=== PATIENT | female | born 1975 | race Caucasian/White ===

== ENCOUNTER 2018-04-18 17:11 | Inpatient (IN) | payer BC, OTHER ==
[~2018-04-18] VITALS: Ht 165.1 cm; Wt 91.8 kg
[~2018-04-18 17:11] MED LIST: ANT25 PO; IMT100 PO; LEVO100T7 PO; LXP/20 PO; MTR800 PO; NITR-5 PO; ONDA4TAB54 PO; PANT1TAB3 PO; PHN25X PO; RIZA1TAB11 PO; SNQ25 PO; SUMA1INJ5 IM; TOPI100T20 PO; VLM5 PO
[2018-04-18] MEDS ORDERED: MoRPHine SULFATE 10 MG/ML CARP/VIAL IV STA (18:04)
[2018-04-18] MEDS ORDERED: ONDANSETRON INJ 2 MG/ML 2 ML VIAL IV STA (18:04)
[2018-04-18] MEDS ORDERED: SODIUM CHLORIDE 0.9% 1000ML 2,000 ML IV STA (18:04)
[2018-04-18] MEDS ORDERED: OPTIRAY 320 IV PRN (18:15)
[2018-04-18] MEDS ORDERED: BUPR-83 PO (18:24)
[2018-04-18] MEDS ORDERED: VALA500T60 PO (18:24)
[2018-04-18] MEDS ORDERED: CHOL2000 PO (18:24)
[2018-04-18] MEDS ORDERED: LEVO50TA6 PO (18:24)
[2018-04-18] MEDS ORDERED: FAMO20TA11 PO (18:24)
[2018-04-18] MEDS ORDERED: RIZA10TA18 PO (18:24)
[2018-04-18] MEDS ORDERED: MTR800 PO (18:24)
[2018-04-18] MEDS ORDERED: B-COTAB18 PO (18:24)
[2018-04-18] MEDS ORDERED: SUMA6KIT SC (18:24)
[2018-04-18] MEDS ORDERED: HYDR50CA PO (18:24)
[2018-04-18 18:55] LABS: BASO % 0.3 %; BASO ABS # 0.02 K/uL (0-0.2); EOS % 0.9 %; EOS ABS # 0.06 K/uL (0-0.5); HEMATOCRIT 41.5 % (37-47); HEMOGLOBIN 13.8 g/dL (12.0-16.0); IG# 0.01 K/uL (0.00-0.02); LYMPH % 25.6 %; LYMPH ABS # 1.74 K/uL (1.2-3.4); MEAN CELL VOLUME 87.6 fL (80-100); MEAN CORPUSCULAR HEMOGLOBIN 29.1 pg (25-34); MEAN CORPUSCULAR HGB CONC 33.3 g/dl (32-36); MEAN PLATELET VOLUME 10.5 fL (7.4-10.4); MONO % 8.4 %; MONO ABS # 0.57 K/uL (0.11-0.59); NEUT % 64.7 %; NEUT ABS # 4.41 K/uL (1.4-6.5); PLATELET COUNT 306 K/uL (130-400); RED CELL DISTRIBUTION WIDTH CV 13.9 % (11.5-14.5); RED CELL DISTRIBUTION WIDTH SD 44.8 fL (36.4-46.3); WHITE BLOOD COUNT 6.81 K/uL (4.8-10.8)
[2018-04-18 19:15] LABS: ALBUMIN 4.3 gm/dl (3.4-5.0); CALCIUM 9.3 mg/dl (8.5-10.1); CREATININE 0.99 mg/dl (0.60-1.20); POTASSIUM 3.9 mmol/L (3.5-5.1); TOTAL PROTEIN 8.4 gm/dl (6.4-8.2)
--- NOTE | 2018-04-18 20:11 | DIAGNOSTIC IMAGING REPORT ---
CT ABD/PELVIS IV CONTRAST ONLY CLINICAL HISTORY: Diffuse abdominal and back pain, slightly worse than the right side. COMPARISON STUDY: February 2015 TECHNIQUE: Following the IV administration of 115 mL of Optiray-320, CT scan of the abdomen and pelvis was performed from the lung bases to the proximal femurs. Images are reviewed in the axial, sagittal, and coronal planes. IV contrast was administered without complication. A dose lowering technique was utilized adhering to the principles of ALARA. CT DOSE: 787.75 mGy.cm FINDINGS: Lower chest: The heart is normal in size and configuration, without pericardial effusion. The lung bases and pleural spaces are clear. Liver: The contrast-enhanced liver is normal in size, contour, and attenuation. There is no intrahepatic biliary ductal dilatation. The hepatic veins and portal veins are patent. Gallbladder: Unremarkable. Spleen: Normal in size and attenuation. Pancreas: Unremarkable. Adrenal glands: Unremarkable. Kidneys: There is symmetric renal cortical enhancement. The kidneys are normal in size without hydronephrosis. Each kidney demonstrates an extrarenal pelvis. Bowel: There is mild nonspecific dilatation of a proximal to mid jejunal loop measuring 34 mm. The etiology of this finding is unclear. No discrete mass is visualized. Evaluation is limited given the absence of orally administered contrast. There is colonic diverticulosis. There are no acute peridiverticular inflammatory changes. The appendix is not visualized with certainty. There are no findings to indicate acute appendicitis. Peritoneum: There is no intraperitoneal free air or abdominal ascites. Vasculature: The abdominal aorta is normal in course and caliber. Adenopathy: None. Pelvic viscera: The uterus is surgically absent. Skeletal structures: No destructive osseous lesions are seen. IMPRESSION: 1. Mild nonspecific dilatation of a proximal to mid jejunal loop measuring 34 mm. The etiology of this finding is unclear. An early small bowel obstruction or focal enteritis cannot be excluded. If symptoms persist, a repeat study in 12 hours with both oral and intravenous contrast might be considered. 2. No evidence of free intraperitoneal air 3. Diverticulosis. No evidence of acute diverticulitis. 4. No evidence of acute appendicitis. Electronically signed by: Murali Temple M.D. 04/18/2018 8:10 PM Dictated Date/Time: 04/18/2018 7:58 PM
[2018-04-18] MEDS ORDERED: MoRPHine SULFATE 4 MG/ML 1 ML CARP\\VIAL IV STA (20:17)
--- NOTE | 2018-04-18 20:42 | DIAGNOSTIC IMAGING REPORT ---
CT LUMBAR SPINE WITHOUT CT DOSE: CLINICAL HISTORY: Severe low back pain TECHNIQUE: Helical images were acquired in transverse plane. Reformatted sagittal and coronal images were reviewed. A dose lowering technique was utilized adhering to the principles of ALARA. CONTRAST: No contrast was administered COMPARISON STUDY: None. FINDINGS: L1-2 level: There is no evidence of significant disc bulge or focal herniation. There is no evidence of spinal or foraminal stenosis. L2-3 level: There is no evidence of significant disc bulge or focal herniation. There is no evidence of spinal or foraminal stenosis. L3-4 level: There is no evidence of significant disc bulge or focal herniation. There is no evidence of spinal or foraminal stenosis. L4-5 level: There is no evidence of significant disc bulge or focal herniation. There is no evidence of spinal or foraminal stenosis. L5-S1 level: There is a suspected left paracentral disc protrusion. Visualization is limited due to the patient's large body habitus. No fractures subluxations or destructive lesions are visualized. If further follow-up of the spine is indicated, an MRI would be considered the test of choice. IMPRESSION: 1. No fractures, subluxations, or destructive lesions are visualized 2. Suspected left paracentral disc protrusion at the L5-S1 level. Visualization is unfortunately limited due to the patient's large body habitus. Electronically signed by: Murali Temple M.D. 04/18/2018 8:40 PM Dictated Date/Time: 04/18/2018 8:37 PM
[2018-04-18] MEDS ORDERED: POLYETHYLENE (MIRALAX) 17 GM PACK PO PRN (21:45)
[2018-04-18] MEDS ORDERED: MAGNESIUM HYDROXIDE SUSP 30 ML UDC PO PRN (21:45)
[2018-04-18] MEDS ORDERED: ALUMINUM/MAGNESIUM/SIMETH (MAALOX MAX) 30 ML UDC PO PRN (21:45)
[2018-04-18] MEDS ORDERED: PANTOprazole INJ 40 MG in SYRINGE 0 ML IV STA (22:19)
--- NOTE | 2018-04-18 22:27 | History and Physical ---
History & Physical Date & Time of Service: Apr 18, 2018 at 22:04 Chief Complaint: Kidney Pain Primary Care Physician: Janet Horan History of Present Illness Source: patient, family Ms. Peres is a 42y/oF with 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 kidney stones, frequent UTIs, hypothyroidism, migraine headaches, ASD, gluten allergy, depression presented with 4 days of progressively worsening R flank pain radiating to abdomen. Associated with nausea, chills, sweats, decreased appetite, and increased BMs (usually goes 2x/month but was going more for the past 4 days and developed diarrhea today), and dysuria/increased urinary frequency. Pain is worse with when she moves/changes positions, intermittent (comes in waves) and cramping in nature. Also noted that blood on wiping. Currently 04/02 despite 10mg of morphine IV. Initially she thought she might have the flu. Denies any fever, sob, cp. ED hx: received morphine 4mg and 6mg IV, NS 1L, and Zofran 4mg x 1 Past Medical/Surgical History Medical Problems: (1) Acute abdominal pain (2) ASHD (arteriosclerotic heart disease) (3) Back pain (4) Danielle's esophagus (5) Cough (6) Cough (7) Gastroenteritis (8) Headache (9) Headache (10) heart disease (11) Hydrosalpinx (12) IBS (irritable bowel syndrome) (13) Intractable nausea and vomiting (14) Kidney disease (15) Menorrhagia (16) Migraine (17) Ovarian cyst (18) Post-op pain (19) Postoperative hematoma (20) Syncopal episodes (21) Vertigo (22) Vomiting Surgical Problems: (1) H/O: hysterectomy (2) History of tubal ligation Family History Cancer Diabetes mellitus Gallbladder disease Heart disease Kidney disease Kidney stones Lung disease Social History Smoking Status: Never Smoker Smokeless Tobacco Use: No Alcohol Use: none Drug Use: none Marital Status: single Occupational Status: employed Immunizations History of Influenza Vaccine: Unknown History of Tetanus Vaccine?: Unknown History of Pneumococcal: Unknown History of Hepatitis B Vaccine: Unknown Allergies Coded Allergies: Oxycodone (Verified Adverse Reaction, Mild, GI Distress (Percocet), ) States has taken before but can only take 1- gets very nauseated Home Medications Scheduled B-Complex Vitamins (Vitamin B Complex), 1 TAB PO DAILYBB Bupropion HCl (Bupropion HCl Sr), 100 MG PO DAILY Cholecalciferol (Vitamin D3), 1 CAP PO DAILY Famotidine (Pepcid), 20 MG PO DAILY Hydroxyzine Pamoate (Vistaril), 1 CAP PO HS Ibuprofen (Ibuprofen), 1 TAB PO TID Levothyroxine Sodium (Levothyroxine Sodium), 1 TAB PO DAILY Sumatriptan Succinate (Imitrex Statdose), 6 MG SC DIRECTED Topiramate (Topamax), 300 MG PO HS Valacyclovir (Valtrex), 1 TAB PO Q8 Scheduled PRN Ondansetron (Ondansetron HCl), 1 TAB PO for Nausea Rizatriptan Benzoate (Rizatriptan Benzoate), 10 MG PO UD PRN for Migraine Review of Systems Constitutional: + chills, + sweats, No fever Respiratory: No shortness of breath Cardiovascular: No chest pain Abdomen: + pain, + nausea, + diarrhea, No vomiting, No constipation Genitourinary - Female: + dysuria, + urinary frequency Neurologic: + problem reported (headache) Physical Exam Vital Signs Date Time Temp Pulse Resp B/P (MAP) Pulse Ox O2 Delivery O2 Flow Rate FiO2 04/18/18 20:07 78 18 129/95 100 Room Air 04/18/18 18:38 83 18 149/104 96 Room Air 04/18/18 17:37 36.7 88 22 140/95 100 Room Air General Appearance: + moderate distress (when abdomen examined otherwise in mild distress) Head: normocephalic, atraumatic Eyes: normal inspection Respiratory/Chest: lungs clear, normal breath sounds, no respiratory distress Cardiovascular: regular rate, rhythm, no murmur Abdomen/GI: normal bowel sounds, soft, + pertinent finding (tender to mild palpation in all quadrants; no rebound TTP; + R sided CVA tenderness) Back: + right CVA tenderness Extremities/Musculoskelatal: no calf tenderness, no pedal edema Neurologic/Psych: alert, oriented x 3 Skin: normal color, warm/dry Diagnostics Laboratory Results Results Past 24 Hours Test 04/18/18 18:22 04/18/18 18:35 Range/Units Urine Color DK YELLOW Urine Appearance CLOUDY CLEAR Urine pH 5.0 4.5-7.5 Urine Specific [place] 1.029 1.000-1.030 Urine Protein TRACE NEG Urine Glucose (UA) NEG NEG Urine Ketones TRACE NEG Urine Occult Blood NEG NEG Urine Nitrite NEG NEG Urine Bilirubin NEG NEG Urine Urobilinogen NEG NEG Urine Leukocyte Esterase TRACE NEG Urine WBC (Auto) 5-10 0-5 /hpf Urine RBC (Auto) 0-4 0-4 /hpf Urine Hyaline Casts (Auto) 1-5 0-5 /lpf Urine Epithelial Cells (Auto) >30 0-5 /lpf Urine Bacteria (Auto) NEG NEG Urine Crystals CALCIUM OXALATE NONE PRSENT Urine Test NEG NEG White Blood Count 6.81 4.8-10.8 K/uL Red Blood Count 4.74 4.2-5.4 M/uL Hemoglobin 13.8 12.0-16.0 g/dL Hematocrit 41.5 37-47 % Mean Corpuscular Volume 87.6 80-100 fL Mean Corpuscular Hemoglobin 29.1 25-34 pg Mean Corpuscular Hemoglobin Concent 33.3 32-36 g/dl Platelet Count 306 130-400 K/uL Mean Platelet Volume 10.5 7.4-10.4 fL Neutrophils (%) (Auto) 64.7 % Lymphocytes (%) (Auto) 25.6 % Monocytes (%) (Auto) 8.4 % Eosinophils (%) (Auto) 0.9 % Basophils (%) (Auto) 0.3 % Neutrophils # (Auto) 4.41 1.4-6.5 K/uL Lymphocytes # (Auto) 1.74 1.2-3.4 K/uL Monocytes # (Auto) 0.57 0.11-0.59 K/uL Eosinophils # (Auto) 0.06 0-0.5 K/uL Basophils # (Auto) 0.02 0-0.2 K/uL RDW Standard Deviation 44.8 36.4-46.3 fL RDW Coefficient of Variation 13.9 11.5-14.5 % Immature Granulocyte % (Auto) 0.1 % Immature Granulocyte # (Auto) 0.01 0.00-0.02 K/uL Sodium Level 141 136-145 mmol/L Potassium Level 3.9 3.5-5.1 mmol/L Chloride Level 110 98-107 mmol/L Carbon Dioxide Level 25 21-32 mmol/L Anion Gap 6.0 3-11 mmol/L Blood Urea Nitrogen 18 7-18 mg/dl Creatinine 0.99 0.60-1.20 mg/dl Est Creatinine Clear Calc Drug Dose 81.2 ml/min Estimated GFR () 80.3 Estimated GFR (Non- 69.3 BUN/Creatinine Ratio 17.9 10-20 Random Glucose 98 70-99 mg/dl Calcium Level 9.3 8.5-10.1 mg/dl Total Bilirubin 0.5 0.2-1 mg/dl Direct Bilirubin 0.1 0-0.2 mg/dl Aspartate Amino Transf (AST/SGOT) 27 15-37 U/L Alanine Aminotransferase (ALT/SGPT) 52 12-78 U/L Alkaline Phosphatase 86 45-117 U/L Total Protein 8.4 6.4-8.2 gm/dl Albumin 4.3 3.4-5.0 gm/dl Lipase 115 73-393 U/L Diagnostic Radiology CT LUMBAR SPINE WITHOUT CT DOSE: CLINICAL HISTORY: Severe low back pain TECHNIQUE: Helical images were acquired in transverse plane. Reformatted sagittal and coronal images were reviewed. A dose lowering technique was utilized adhering to the principles of ALARA. CONTRAST: No contrast was administered COMPARISON STUDY: None. FINDINGS: L1-2 level: There is no evidence of significant disc bulge or focal herniation. There is no evidence of spinal or foraminal stenosis. L2-3 level: There is no evidence of significant disc bulge or focal herniation. There is no evidence of spinal or foraminal stenosis. L3-4 level: There is no evidence of significant disc bulge or focal herniation. There is no evidence of spinal or foraminal stenosis. L4-5 level: There is no evidence of significant disc bulge or focal herniation. There is no evidence of spinal or foraminal stenosis. L5-S1 level: There is a suspected left paracentral disc protrusion. Visualization is limited due to the patient's large body habitus. No fractures subluxations or destructive lesions are visualized. If further follow-up of the spine is indicated, an MRI would be considered the test of choice. IMPRESSION: 1. No fractures, subluxations, or destructive lesions are visualized 2. Suspected left paracentral disc protrusion at the L5-S1 level. Visualization is unfortunately limited due to the patient's large body habitus. CT ABD/PELVIS IV CONTRAST ONLY CLINICAL HISTORY: Diffuse abdominal and back pain, slightly worse than the right side. COMPARISON STUDY: February 2015 TECHNIQUE: Following the IV administration of 115 mL of Optiray-320, CT scan of the abdomen and pelvis was performed from the lung bases to the proximal femurs. Images are reviewed in the axial, sagittal, and coronal planes. IV contrast was administered without complication. A dose lowering technique was utilized adhering to the principles of ALARA. CT DOSE: 787.75 mGy.cm FINDINGS: Lower chest: The heart is normal in size and configuration, without pericardial effusion. The lung bases and pleural spaces are clear. Liver: The contrast-enhanced liver is normal in size, contour, and attenuation. There is no intrahepatic biliary ductal dilatation. The hepatic veins and portal veins are patent. Gallbladder: Unremarkable. Spleen: Normal in size and attenuation. Pancreas: Unremarkable. Adrenal glands: Unremarkable. Kidneys: There is symmetric renal cortical enhancement. The kidneys are normal in size without hydronephrosis. Each kidney demonstrates an extrarenal pelvis. Bowel: There is mild nonspecific dilatation of a proximal to mid jejunal loop measuring 34 mm. The etiology of this finding is unclear. No discrete mass is visualized. Evaluation is limited given the absence of orally administered contrast. There is colonic diverticulosis. There are no acute peridiverticular inflammatory changes. The appendix is not visualized with certainty. There are no findings to indicate acute appendicitis. Peritoneum: There is no intraperitoneal free air or abdominal ascites. Vasculature: The abdominal aorta is normal in course and caliber. Adenopathy: None. Pelvic viscera: The uterus is surgically absent. Skeletal structures: No destructive osseous lesions are seen. IMPRESSION: 1. Mild nonspecific dilatation of a proximal to mid jejunal loop measuring 34 mm. The etiology of this finding is unclear. An early small bowel obstruction or focal enteritis cannot be excluded. If symptoms persist, a repeat study in 12 hours with both oral and intravenous contrast might be considered. 2. No evidence of free intraperitoneal air 3. Diverticulosis. No evidence of acute diverticulitis. 4. No evidence of acute appendicitis. Impression Assessment and Plan Ms. Peres is a 42y/oF with 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 kidney stones, frequent UTIs, hypothyroidism, migraine headaches, ASD, gluten allergy, depression presented with 4 days of progressively worsening R flank pain radiating to abdomen concerning for urethral pathology such as urethral stenosis given hx of urosepsis with urethral surgery (ureter was detached and reattached) vs. nephrolithiasis (CT abdomen did not reveal any stones however it was with contrast) vs. mild pyelonephritis (given dirty UA) vs. early small bowel obstruction. Will admit for further work up and management. Abdominal and flank pain concerning for urethral pathology given previous history of urethral surgery - Afebrile with normal WBC - CMP wnl - UA with trace leuk esterase 5-10 WBC and > 30 epi and calcium oxalate crystals - test neg - CT abdomen with contrast: mild non-specific dilation of proximal to mid jejunal loop 34mm concerning for possible early small bowel obstruction or focal enteritis; no free air; diverticulosis without diverticulitis; no appendicitis - Lumbar spine CT: no fractures, suspected L paracentral disc protrusion at L5- L1 - Started on Oxybutynin 5mg BID for relaxation - Started on Pantoprazole IV 40mg BID - Started on Rocephin - Pain control: IV toradol 30mg IV Q6H PRN and acetaminophen 1g Q8H IV ATC - NPO after midnight on IVF - Consulted urology for consideration of IVP Hypothyroidism - Continued home Synthroid Depression - Continued home bupropion 100mg daily Migraine - Continued home sumatriptan, rizatriptan, topiramate FEN/GI - Continued home Famotidine 20mg daily - Zofran 4mg IV PRN for nausea - Bowel regimen ordered DVT prop: SCDs Full code Attending addendum: I have physically seen this patient, have supervised the medical residents activities, and agree with the H&P unless as otherwise noted. Assessment and Plan: Abdominal and flank pain/early SBO versus focal enteritis/history of urethral surgery and possible complicated UTI-- Empiric treatment with ceftriaxone IV. N.p.o. after midnight. Pantoprazole 40 mg IV twice daily Oxybutynin 5 mg p.o. twice daily. Acetaminophen 1 g IV every 8 hours ATC. Toradol 30 mg IV every 6 hours as needed breakthrough pain. Urology consult. Remainder of orders and notes as noted above. Advanced Directives Existing Advance Directive: No Existing Living Will: No Existing Power of Shoemaking Finisher: No Resuscitation Status VTE Prophylaxis Will order VTE Prophylaxis: Yes Social Service Consult None Apply
[2018-04-18] MEDS ORDERED: WLLSR100 PO (22:29)
[2018-04-18] MEDS ORDERED: RIZATRIPTAN BENZOATE 10 MG TAB PO PRN (22:30)
[2018-04-18] MEDS ORDERED: SUMATRIPTAN SUCCINATE 6 MG/0.5 ML VIAL SQ PRN (22:30)
[2018-04-18 22:34] VITALS: O2SAT 98
[2018-04-18 23:46] VITALS: BP 137/91; PULSE 65; TEMP 36.6; O2SAT 100
[2018-04-18] MEDS: CEFTRIAXONE SOD INJ 1 GM in DEXTROSE 5% ADD-VANTAGE 50ML 50 ML IV SCH (23:59)
[2018-04-18] MEDS: ACETAMINOPHEN IV 1,000 MG in EMPTY BAG 0 ML IV SCH (23:59)
--- NOTE | 2018-04-19 00:06 | EMERGENCY ROOM VISIT NOTE ---
History Report prepared by Sona: Gerard Valle Under the Supervision of: Dr. Obinna Mccain D.O. First contact with patient: 17:50 Chief Complaint: REFERRED BY DOCTOR Stated Complaint: KIDNEY PAIN History of Present Illness The patient is a 42 year old female who presents to the Emergency Room with complaints of worsening bilateral lower back pain that began four days ago. She rates her pain as a 10/10 in severity. She states her pain is worsened with movement and relieved with rest. The patient states that she originally developed chills and diaphoresis. She reports she felt generally unwell and thought she had the flu. She reports that she also developed back pain that radiates to the flank and abdomen bilaterally. She notes the right side is worse than left. She states she has been dehydrated for the last couple of days. The patient notes she has had decreased urine output until today. She reports today her urination frequency increased and she states it has been burning. She states she also developed a headache today. The patient states her last bowel movement was today, which was diarrhea. The patient states that she went to [place] [facility] today where she had a urine culture done. She reports she was sent to the ED. The patient denies fever, cough, rhinorrhea, hematuria, vaginal bleeding, vaginal discharge, numbness or weakness in lower extremities. The patient denies blood thinners. The patient reports a history of right ureter surgery done at [facility] done by Dr. Jones. Source of History: patient Onset: four days ago Position: back (lower) Symptom Intensity: 10/10 Timing: worsening Modifying Factors (Worsening): movement Modifying Factors (Relieving): rest Associated Symptoms: + chills, + headache, + diaphoresis, + abdominal pain, + diarrhea, + urinary symptoms, No fevers, No cough, No weakness, No numbness Note: Denies rhinorrhea, hematuria, vaginal bleeding or discharge. Review of Systems See HPI for pertinent positives & negatives. A total of 10 systems reviewed and were otherwise negative. Past Medical & Surgical Medical Problems: (1) Danielle's esophagus (2) IBS (irritable bowel syndrome) Surgical Problems: (1) H/O: hysterectomy (2) History of tubal ligation Family History Cancer Diabetes mellitus Gallbladder disease Heart disease Kidney disease Kidney stones Lung disease Social History Smoking Status: Never Smoker Alcohol Use: none Drug Use: none Marital Status: single Housing Status: lives alone Occupation Status: employed Current/Historical Medications Scheduled B-Complex Vitamins (Vitamin B Complex), 1 TAB PO DAILYBB Bupropion HCl (Bupropion HCl Sr), 100 MG PO DAILY Cholecalciferol (Vitamin D3), 1 CAP PO DAILY Famotidine (Pepcid), 20 MG PO DAILY Hydroxyzine Pamoate (Vistaril), 1 CAP PO HS Ibuprofen (Ibuprofen), 1 TAB PO TID Levothyroxine Sodium (Levothyroxine Sodium), 1 TAB PO DAILY Sumatriptan Succinate (Imitrex Statdose), 6 MG SC DIRECTED Topiramate (Topamax), 300 MG PO HS Valacyclovir (Valtrex), 1 TAB PO Q8 Scheduled PRN Ondansetron (Ondansetron HCl), 1 TAB PO for Nausea Rizatriptan Benzoate (Rizatriptan Benzoate), 10 MG PO UD PRN for Migraine Allergies Coded Allergies: Oxycodone (Verified Adverse Reaction, Mild, GI Distress (Percocet), ) States has taken before but can only take 1- gets very nauseated Physical Exam Vital Signs Date Time Temp Pulse Resp B/P (MAP) Pulse Ox O2 Delivery O2 Flow Rate FiO2 04/18/18 20:07 78 18 129/95 100 Room Air 04/18/18 18:38 83 18 149/104 96 Room Air 04/18/18 17:37 36.7 88 22 140/95 100 Room Air Physical Exam GENERAL: Sitting up in bed, disheveled, non-toxic EYE EXAM: normal conjunctiva. OROPHARYNX: no exudate, no erythema, lips, buccal mucosa, and tongue normal and mucous membranes are moist NECK: supple, no nuchal rigidity, no adenopathy, non-tender LUNGS: Clear to auscultation. Normal chest wall mechanics HEART: no murmurs, S1 normal and S2 normal ABDOMEN: abdomen soft, minimal diffuse tenderness, normo-active bowel sounds, no masses, no rebound or guarding. BACK: Back is symmetrical on inspection and there is no deformity. Old right lower lumbar mid back incision. Tenderness over region tracking to right flank. SKIN: no rashes and no bruising UPPER EXTREMITIES: upper extremities are grossly normal. LOWER EXTREMITIES: No pitting edema. Flexion and extension of the hips, knees, ankles, and EHL 5/5 bilaterally. Gross sensation is intact. DPs are 2/4 bilateral. NEURO EXAM: Normal sensorium, cranial nerves II-XII grossly intact, normal speech, no gross weakness of arms, no gross weakness of legs. Medical Decision & Procedures ER Provider Diagnostic Interpretation: Radiology results as stated below per my review and the radiologist's interpretation: CT ABD/PELVIS IV CONTRAST ONLY CLINICAL HISTORY: Diffuse abdominal and back pain, slightly worse than the right side. COMPARISON STUDY: February 2015 TECHNIQUE: Following the IV administration of 115 mL of Optiray-320, CT scan of the abdomen and pelvis was performed from the lung bases to the proximal femurs. Images are reviewed in the axial, sagittal, and coronal planes. IV contrast was administered without complication. A dose lowering technique was utilized adhering to the principles of ALARA. CT DOSE: 787.75 mGy.cm FINDINGS: Lower chest: The heart is normal in size and configuration, without pericardial effusion. The lung bases and pleural spaces are clear. Liver: The contrast-enhanced liver is normal in size, contour, and attenuation. There is no intrahepatic biliary ductal dilatation. The hepatic veins and portal veins are patent. Gallbladder: Unremarkable. Spleen: Normal in size and attenuation. Pancreas: Unremarkable. Adrenal glands: Unremarkable. Kidneys: There is symmetric renal cortical enhancement. The kidneys are normal in size without hydronephrosis. Each kidney demonstrates an extrarenal pelvis. Bowel: There is mild nonspecific dilatation of a proximal to mid jejunal loop measuring 34 mm. The etiology of this finding is unclear. No discrete mass is visualized. Evaluation is limited given the absence of orally administered contrast. There is colonic diverticulosis. There are no acute peridiverticular inflammatory changes. The appendix is not visualized with certainty. There are no findings to indicate acute appendicitis. Peritoneum: There is no intraperitoneal free air or abdominal ascites. Vasculature: The abdominal aorta is normal in course and caliber. Adenopathy: None. Pelvic viscera: The uterus is surgically absent. Skeletal structures: No destructive osseous lesions are seen. IMPRESSION: 1. Mild nonspecific dilatation of a proximal to mid jejunal loop measuring 34 mm. The etiology of this finding is unclear. An early small bowel obstruction or focal enteritis cannot be excluded. If symptoms persist, a repeat study in 12 hours with both oral and intravenous contrast might be considered. 2. No evidence of free intraperitoneal air 3. Diverticulosis. No evidence of acute diverticulitis. 4. No evidence of acute appendicitis. Electronically signed by: Murali Temple M.D. 04/18/2018 8:10 PM Dictated Date/Time: 04/18/2018 7:[address] LUMBAR SPINE WITHOUT CT DOSE: CLINICAL HISTORY: Severe low back pain TECHNIQUE: Helical images were acquired in transverse plane. Reformatted sagittal and coronal images were reviewed. A dose lowering technique was utilized adhering to the principles of ALARA. CONTRAST: No contrast was administered COMPARISON STUDY: None. FINDINGS: L1-2 level: There is no evidence of significant disc bulge or focal herniation. There is no evidence of spinal or foraminal stenosis. L2-3 level: There is no evidence of significant disc bulge or focal herniation. There is no evidence of spinal or foraminal stenosis. L3-4 level: There is no evidence of significant disc bulge or focal herniation. There is no evidence of spinal or foraminal stenosis. L4-5 level: There is no evidence of significant disc bulge or focal herniation. There is no evidence of spinal or foraminal stenosis. L5-S1 level: There is a suspected left paracentral disc protrusion. Visualization is limited due to the patient's large body habitus. No fractures subluxations or destructive lesions are visualized. If further follow-up of the spine is indicated, an MRI would be considered the test of choice. IMPRESSION: 1. No fractures, subluxations, or destructive lesions are visualized 2. Suspected left paracentral disc protrusion at the L5-S1 level. Visualization is unfortunately limited due to the patient's large body habitus. Electronically signed by: Murali Temple M.D. 04/18/2018 8:40 PM Dictated Date/Time: 04/18/2018 8:37 PM Laboratory Results 04/18/18 18:35 Red Blood Count 4.74, Mean Corpuscular Volume 87.6, Mean Corpuscular Hemoglobin 29.1, Mean Corpuscular Hemoglobin Concent 33.3, Mean Platelet Volume 10.5, Neutrophils (%) (Auto) 64.7, Lymphocytes (%) (Auto) 25.6, Monocytes (%) (Auto) 8.4, Eosinophils (%) (Auto) 0.9, Basophils (%) (Auto) 0.3, Neutrophils # (Auto) 4.41, Lymphocytes # (Auto) 1.74, Monocytes # (Auto) 0.57, Eosinophils # (Auto) 0.06, Basophils # (Auto) 0.02 04/18/18 18:35 Test 04/18/18 18:22 04/18/18 18:35 Urine Color DK YELLOW Urine Appearance CLOUDY (CLEAR) Urine pH 5.0 (4.5-7.5) Urine Specific [place] 1.029 (1.000-1.030) Urine Protein TRACE (NEG) Urine Glucose (UA) NEG (NEG) Urine Ketones TRACE (NEG) Urine Occult Blood NEG (NEG) Urine Nitrite NEG (NEG) Urine Bilirubin NEG (NEG) Urine Urobilinogen NEG (NEG) Urine Leukocyte Esterase TRACE (NEG) Urine WBC (Auto) 5-10 /hpf (0-5) Urine RBC (Auto) 0-4 /hpf (0-4) Urine Hyaline Casts (Auto) 1-5 /lpf (0-5) Urine Epithelial Cells (Auto) >30 /lpf (0-5) Urine Bacteria (Auto) NEG (NEG) Urine Crystals CALCIUM OXALATE (NONE Urine Test NEG (NEG) White Blood Count 6.81 K/uL (4.8-10.8) Red Blood Count 4.74 M/uL (4.2-5.4) Hemoglobin 13.8 g/dL (12.0-16.0) Hematocrit 41.5 % (37-47) Mean Corpuscular Volume 87.6 fL (80-100) Mean Corpuscular Hemoglobin 29.1 pg (25-34) Mean Corpuscular Hemoglobin Concent 33.3 g/dl (32-36) Platelet Count 306 K/uL (130-400) Mean Platelet Volume 10.5 fL (7.4-10.4) Neutrophils (%) (Auto) 64.7 % Lymphocytes (%) (Auto) 25.6 % Monocytes (%) (Auto) 8.4 % Eosinophils (%) (Auto) 0.9 % Basophils (%) (Auto) 0.3 % Neutrophils # (Auto) 4.41 K/uL (1.4-6.5) Lymphocytes # (Auto) 1.74 K/uL (1.2-3.4) Monocytes # (Auto) 0.57 K/uL (0.11-0.59) Eosinophils # (Auto) 0.06 K/uL (0-0.5) Basophils # (Auto) 0.02 K/uL (0-0.2) RDW Standard Deviation 44.8 fL (36.4-46.3) RDW Coefficient of Variation 13.9 % (11.5-14.5) Immature Granulocyte % (Auto) 0.1 % Immature Granulocyte # (Auto) 0.01 K/uL (0.00-0.02) Anion Gap 6.0 mmol/L (3-11) Est Creatinine Clear Calc Drug Dose 81.2 ml/min Estimated GFR () 80.3 Estimated GFR (Non- 69.3 BUN/Creatinine Ratio 17.9 (10-20) Calcium Level 9.3 mg/dl (8.5-10.1) Total Bilirubin 0.5 mg/dl (0.2-1) Direct Bilirubin 0.1 mg/dl (0-0.2) Aspartate Amino Transf (AST/SGOT) 27 U/L (15-37) Alanine Aminotransferase (ALT/SGPT) 52 U/L (12-78) Alkaline Phosphatase 86 U/L (45-117) Total Protein 8.4 gm/dl (6.4-8.2) Albumin 4.3 gm/dl (3.4-5.0) Lipase 115 U/L (73-393) Laboratory results per my review. Medications Administered Medications (Trade) Dose Ordered Sig/Mariann Route Start Time Stop Time Status Last Admin Dose Admin Sodium Chloride 2,000 ml @ 999 mls/hr Q2H1M STAT IV 04/18/18 18:04 04/18/18 20:04 DC 04/18/18 18:38 999 MLS/HR Ondansetron HCl (Zofran Inj) 4 mg NOW STAT IV 04/18/18 18:04 04/18/18 18:06 DC 04/18/18 18:38 4 MG Morphine Sulfate (MoRPHine SULFATE INJ) 6 mg NOW STAT IV 04/18/18 18:04 04/18/18 18:06 DC 04/18/18 18:37 6 MG Morphine Sulfate (MoRPHine SULFATE INJ) 4 mg NOW STAT IV 04/18/18 20:17 04/18/18 20:18 DC 04/18/18 20:23 4 MG ED Course ED COURSE: Vital signs were reviewed and showed hypertension The patients medical record was reviewed The above diagnostic studies were performed and reviewed. ED treatments and interventions as stated above. 1754: The patient was evaluated in room C02B. A complete history and physical examination was performed. 1803: Ordered Morphine Sulfate 6 mg IV, Zofran Injection 4 mg IV, Sodium Chloride 2000 ml @ 999 mls/hr IV. 2015: I reevaluated the patient. She is still in pain and would like more medication. 2017: Ordered Morphine Sulfate 4 mg IV. 2020: Upon reevaluation, the patient is resting comfortably. I discussed my findings with the patient and she understands and agrees with the treatment plan. Based on the patients age, coexisting illnesses, exam and lab findings the decision to treat as an inpatient was made. The patient remained stable while under my care. The patient will be evaluated for further management. 2022: I discussed the patients case with Dr. Ritchie, [facility] Hospitalist. He understands the patients condition and agrees to accept the patient. The patient will be evaluated for further management and care. Medical Decision Differential diagnoses includes but is not limited to gastritis, peptic ulcer disease, GERD, gallbladder disease, pancreatitis, small bowel obstruction, acute coronary syndrome, pericarditis, ischemic bowel, irritable bowel disease, irritable bowel syndrome, appendicitis, diverticulitis, malignancy, hernia, urinary tract infection, torsion, /ectopic (if female), perforation, trauma, infectious. Patient is a 42-year-old female who presents the ER for lower back pain sent in by her PCP. She notes the pain is worse on the right and is diffuse within the abdomen. Her abdominal exams fairly benign. Labs were obtained and CBC along with BMP, LFTs, bilirubin lipase is unremarkable. UA was unremarkable. was negative. CT of the lumbar spine and abdomen pelvis shows jejunal loop of bowel which is distended question an early small bowel. There is also a left L5-S1 disc protrusion. Based on the presentation do favor that this is likely musculoskeletal in the back cannot be certain. Patient was given 2 doses of IV morphine. She did feel significant better. She was updated at bedside and admitted to internal medicine for observation. Medication Reconcilliation Current Medication List: was personally reviewed by me Blood Pressure Screening Patient's blood pressure: Elevated blood pressure Blood pressure disposition: Elevated BP felt to be situational Consults Time Called: 2022 Consulting Physician: Dr. Ritchie [facility] Hospitalist Returned Call: 2022 I discussed the patients case with Dr. Ritchie, [facility] Hospitalist. He understands the patients condition and agrees to accept the patient. The patient will be evaluated for further management and care. Impression Primary Impression: Abdominal pain Additional Impressions: Back pain Questionable bowel obstruction Scribe Attestation The scribe's documentation has been prepared under my direction and personally reviewed by me in its entirety. I confirm that the note above accurately reflects all work, treatment, procedures, and medical decision making performed by me. Departure Information Dispostion Being Evaluated By Hospitalist Referrals Janet Horan (PCP) Patient Instructions My [facility] Problem Qualifiers Primary Impression: Abdominal pain Abdominal location: unspecified location Qualified Codes: R10.9 - Unspecified abdominal pain Additional Impressions: Back pain Back pain location: low back pain Chronicity: acute Back pain laterality: right Sciatica presence: without sciatica Qualified Codes: M54.5 - Low back pain
[2018-04-19 00:07] VITALS: Ht 165.1 cm; Wt 91.8 kg
[2018-04-19] MEDS: KETOROLAC TROMETHAMINE 30 MG/ML VIAL IV PRN ×2 (06:04→16:44)
[2018-04-19] MEDS: LEVOTHYROXINE 50 MCG TAB PO SCH (06:04)
[2018-04-19] MEDS: VITAMIN B COMPLEX TAB PO SCH (06:05)
[2018-04-19 07:49] VITALS: BP 106/72; PULSE 67; TEMP 36.5; O2SAT 99
[2018-04-19] MEDS: BuPROPion SR 100 MG TABCR PO SCH (08:11)
[2018-04-19] MEDS: ACETAMINOPHEN IV 1,000 MG in EMPTY BAG 0 ML IV SCH ×2 (08:11→16:42)
[2018-04-19] MEDS: OXYBUTYNIN CHLORIDE 5 MG TAB PO SCH ×2 (08:12→20:31)
[2018-04-19] MEDS: CHOLECALCIFEROL 1000 INTER.UNIT TAB PO SCH (08:12)
[2018-04-19] MEDS: PANTOprazole INJ 40 MG in SYRINGE 0 ML IV SCH ×2 (08:12→20:32)
[2018-04-19] MEDS: FAMOTIDINE 20 MG TAB PO SCH (08:13)
[2018-04-19] MEDS ORDERED: HYDROmorphone INJ 0.5 MG/0.5 ML SYR IV STA (11:10)
[2018-04-19] MEDS ORDERED: SODIUM CHLORIDE 0.9% 500ML 500 ML IV SCH (11:15)
[2018-04-19] MEDS ORDERED: HYDROmorphone INJ 0.5 MG/0.5 ML SYR IV PRN ×2 (11:15)
[2018-04-19] MEDS: SODIUM CHLORIDE 0.9% 1000ML 1,000 ML IV SCH (11:33)
--- NOTE | 2018-04-19 12:43 | Urology Consultation ---
History General Date of Service: Apr 19, 2018. Chief Complaint: Abdominal/flank pain Primary Care Physician: Janet Horan. Pt seen a urologist before?: Yes (Dr. Humphreys, [facility]) If yes, why?: Hematuria, back pain History of Present Illness 42 YO female, with abdominal/back/right flank pain Reports bilateral flank pain/flu like symptoms x 4d, worsening yesterday that brought her to ER. Also reports dysuria and increased urinary frequency since yesterday. Denies fever/chills. Denies nausea/vomiting. Does report diarrhea. Patient reports UTI almost every month, states that she manages via walk in clinics. Frequent antibiotics, unsure if cultures. Last seen by our practice in Summer 2014, when she had a normal CT scan ( extrarenal pelvis bilaterally) and a negative cystoscopy. She had recurrent UTI at that time. She was lost to follow up. History of right UPJ repair in her [address] yesterday, images reviewed with patient: no worrisome findings. No hydronephrosis, extrarenal pelvis bilaterally. Creatinine stable. UC&S pending at this time. Imaging Imaging: CT Images were done at: [facility] Laboratory Labs were reviewed and are within normal limits unless listed below. Labs are available in the chart and at [facility] Problem List Medical Problems: (1) Abdominal pain Status: Acute (2) Back pain Status: Acute (3) Intractable nausea and vomiting Status: Acute (4) Post-op pain Status: Acute (5) Postoperative hematoma Status: Acute Past History depression, hypothyroidism, kidney stones, urinary tract infection Past Surgical History: other (right UPJ repair at age 18) Family History Cancer Diabetes mellitus Gallbladder disease Heart disease Kidney disease Kidney stones Lung disease Social History Hx Tobacco Use In Past Year?: No Smoking: non-smoker Alcohol: occasional Drug use: none Marital status: single Housing status: lives with family, lives with significant other Occupation status: employed Allergies Coded Allergies: Oxycodone (Verified Adverse Reaction, Mild, GI Distress (Percocet), ) States has taken before but can only take 1- gets very nauseated Medications Home Medications: Home Meds and Scripts Medications Dose Route/Sig Max Daily Dose Days Date Category Bupropion HCl Sr (Bupropion HCl) 100 Mg Tabcr 100 Mg PO DAILY 04/18/18 Reported Vitamin D3 (Cholecalciferol) 2,000 Unit Cap 1 Cap PO DAILY 90 04/18/18 Reported Vitamin B Complex (B-Complex Vitamins) 1 Tab Tab 1 Tab PO DAILYBB 04/18/18 Reported Valtrex (Valacyclovir HCl) 500 Mg Tab 1 Tab PO Q8 30 04/18/18 Reported Levothyroxine Sodium 50 Mcg Tab 1 Tab PO DAILY 90 04/18/18 Reported Imitrex Statdose (Sumatriptan Succinate) 6 Mg/0.5 Ml Inj 6 Mg SC DIRECTED 04/18/18 Reported Ibuprofen 800 Mg Tab 1 Tab PO TID 04/18/18 Reported Vistaril (Hydroxyzine Pamoate) 50 Mg Cap 1 Cap PO HS 30 04/18/18 Reported Pepcid (Famotidine) 20 Mg Tab 20 Mg PO DAILY 04/18/18 Reported Ondansetron HCl (Ondansetron) 4 Mg Tab 1 Tab PO PRN 07/28/15 Reported Rizatriptan Benzoate 10 Mg Tab 10 Mg PO UD PRN 04/23/15 Reported Topamax (Topiramate) 100 Mg Tab 300 Mg PO HS 03/31/09 Reported Inpatient Medications: Current Inpatient Medications Medications (Trade) Dose Ordered Sig/Mariann Route Start Time Stop Time Status Last Admin Dose Admin Ioversol (Optiray 320) 111 ml UD PRN IV 04/18/18 18:15 04/22/18 18:14 Al Hydrox/Mg Hydrox/Simethicone (Maalox Max Susp) 15 ml Q4H PRN PO 04/18/18 21:45 05/18/18 21:44 Magnesium Hydroxide (Milk Of Magnesia Susp) 30 ml Q6H PRN PO 04/18/18 21:45 05/18/18 21:44 Polyethylene (Miralax Powder Packet) 17 gm DAILY PRN PO 04/18/18 21:45 05/18/18 21:44 Ondansetron HCl (Zofran Inj) 4 mg Q6H PRN IV 04/18/18 21:45 05/18/18 21:44 Bupropion HCl (Wellbutrin-Sr Tab) 100 mg DAILY PO 04/19/18 08:00 05/19/18 08:59 04/19/18 08:11 100 MG Famotidine (Pepcid Tab) 20 mg DAILY PO 04/19/18 08:00 05/19/18 08:59 04/19/18 08:13 20 MG Levothyroxine Sodium (Synthroid Tab) 50 mcg DAILYBB PO 04/19/18 06:30 05/19/18 06:59 04/19/18 06:04 50 MCG Topiramate (Topamax Tab) 300 mg HS PO 04/19/18 21:00 05/19/18 20:59 Vitamin B Complex (Vitamin B Complex) 1 tab DAILYBB PO 04/19/18 06:30 05/19/18 06:59 04/19/18 06:05 1 TAB Cholecalciferol (Vitamin D Tab) 2,000 inter.unit QAM PO 04/19/18 08:00 05/19/18 08:59 04/19/18 08:12 2,000 INTER.UNIT Hydroxyzine HCl (Vistaril Tab) 50 mg HS PO 04/19/18 21:00 05/19/18 20:59 Rizatriptan Benzoate (Maxalt Tab) 10 mg DAILY PRN PO 04/18/18 22:30 05/18/18 22:29 Sumatriptan Succinate (Imitrex Sq Inj) 6 mg DAILY PRN SQ 04/18/18 22:30 05/18/18 22:29 Ketorolac Tromethamine (Toradol Inj) 30 mg Q6H PRN IV 04/18/18 21:45 04/23/18 21:44 04/19/18 06:04 30 MG Acetaminophen 1000 mg/Empty Bag 100 ml @ 400 mls/hr Q8H IV 04/19/18 00:00 05/19/18 00:00 04/19/18 08:11 400 MLS/HR Oxybutynin Chloride (Ditropan Tab) 5 mg BID PO 04/19/18 08:00 05/19/18 08:59 04/19/18 08:12 5 MG Pantoprazole Sodium 40 mg/ Syringe 10 ml @ 5 mls/min DAILY@09,21 IV 04/19/18 09:00 05/19/18 08:59 04/19/18 08:12 5 MLS/MIN Ceftriaxone Sodium 1 gm/ Dextrose 50 ml @ 100 mls/hr Q24H IV 04/18/18 23:30 04/28/18 23:29 04/18/18 23:59 100 MLS/HR Sodium Chloride 1,000 ml @ 125 mls/hr Q8H IV 04/19/18 11:15 05/19/18 11:14 04/19/18 11:33 125 MLS/HR Hydromorphone HCl (Dilaudid Inj) 0.5 mg Q4 PRN IV 04/19/18 11:15 05/03/18 11:14 Hydromorphone HCl (Dilaudid Inj) 1 mg Q4 PRN IV 04/19/18 11:15 05/03/18 11:14 Review of Systems Review of Systems Constitutional: No fever, No chills Eyes: No blurred vision Neurological: No dizzy, No numbness/tingling Gastrointestinal: + abdominal pain, + diarrhea, No nausea, No vomiting, No constipation Cardiovascular: No chest pain Respiratory: No shortness of breath Female : + frequent urination, + painful urination, + infections, + kidney stones, No urinary retention, No weak stream, No blood in urine, No leaking urine Physical Exam Vital Signs: Vital Signs Past 12 Hours Date Time Temp Pulse Resp B/P (MAP) Pulse Ox O2 Delivery O2 Flow Rate FiO2 04/19/18 08:00 Room Air 04/19/18 07:49 36.5 67 20 106/72 (83) 99 Room Air 04/19/18 00:47 Room Air Physical Exam: General Appearance: no apparent distress Eyes: bilateral eyes normal inspection ENT: hearing grossly normal Neck: supple, no JVD Respiratory/Chest: no respiratory distress, no accessory muscle use Cardiovascular: no edema, no JVD Gastrointestinal: Abdomen: diffuse Bladder: normal bladder Renal: normal renal Genitourinary - Female: Bladder: normal bladder Extremities: normal inspection Neurologic/Psychiatric: alert, normal mood/affect, oriented x 3 Skin: normal color, warm/dry Assessment & Plan Assessment & Plan 42 YO female, with abdominal/back/right flank pain CT yesterday, images reviewed: no worrisome findings. No stone visualized, no hydronephrosis, extrarenal pelvis bilaterally. Creatinine stable. I do not think that additional renal imaging is indicated at this time. I do not have any urethral concerns for this patient as she is spontaneously voiding without difficulty. Does mention diarrhea. Recommend continued antibiotics pending urine culture results. Transition to PO for a total of 10d of therapy PRN. Will need follow up in our outpatient office to assess her recurrent UTI. Thanks for the consult. Will continue to intermittently follow along with primary service.
[2018-04-19 15:19] VITALS: BP 114/79; PULSE 58; TEMP 36.5; O2SAT 97
--- NOTE | 2018-04-19 16:09 | Progress Note ---
Subjective Date of Service: Apr 19, 2018. Problem List Medical Problems: (1) Abdominal pain Status: Acute (2) Back pain Status: Acute (3) Intractable nausea and vomiting Status: Acute (4) Post-op pain Status: Acute (5) Postoperative hematoma Status: Acute Objective Vital Signs Date Time Temp Pulse Resp B/P (MAP) Pulse Ox O2 Delivery O2 Flow Rate FiO2 04/19/18 15:19 36.5 58 18 114/79 (91) 97 Room Air 04/19/18 08:00 Room Air 04/19/18 07:49 36.5 67 20 106/72 (83) 99 Room Air 04/19/18 00:47 Room Air 04/19/18 00:07 Room Air 04/18/18 23:46 36.6 65 17 137/91 (106) 100 Room Air 04/18/18 22:34 77 18 134/84 98 04/18/18 22:06 77 18 134/84 98 Room Air 04/18/18 20:07 78 18 129/95 100 Room Air 04/18/18 18:38 83 18 149/104 96 Room Air 04/18/18 17:37 36.7 88 22 140/95 100 Room Air Laboratory Results Last 24 Hours Test 04/18/18 18:22 04/18/18 18:35 Urine Color DK YELLOW Urine Appearance CLOUDY Urine pH 5.0 Urine Specific [place] 1.029 Urine Protein TRACE Urine Glucose (UA) NEG Urine Ketones TRACE Urine Occult Blood NEG Urine Nitrite NEG Urine Bilirubin NEG Urine Urobilinogen NEG Urine Leukocyte Esterase TRACE Urine WBC (Auto) 5-10 /hpf Urine RBC (Auto) 0-4 /hpf Urine Hyaline Casts (Auto) 1-5 /lpf Urine Epithelial Cells (Auto) >30 /lpf Urine Bacteria (Auto) NEG Urine Crystals CALCIUM OXALATE Urine Test NEG White Blood Count 6.81 K/uL Red Blood Count 4.74 M/uL Hemoglobin 13.8 g/dL Hematocrit 41.5 % Mean Corpuscular Volume 87.6 fL Mean Corpuscular Hemoglobin 29.1 pg Mean Corpuscular Hemoglobin Concent 33.3 g/dl Platelet Count 306 K/uL Mean Platelet Volume 10.5 fL Neutrophils (%) (Auto) 64.7 % Lymphocytes (%) (Auto) 25.6 % Monocytes (%) (Auto) 8.4 % Eosinophils (%) (Auto) 0.9 % Basophils (%) (Auto) 0.3 % Neutrophils # (Auto) 4.41 K/uL Lymphocytes # (Auto) 1.74 K/uL Monocytes # (Auto) 0.57 K/uL Eosinophils # (Auto) 0.06 K/uL Basophils # (Auto) 0.02 K/uL RDW Standard Deviation 44.8 fL RDW Coefficient of Variation 13.9 % Immature Granulocyte % (Auto) 0.1 % Immature Granulocyte # (Auto) 0.01 K/uL Sodium Level 141 mmol/L Potassium Level 3.9 mmol/L Chloride Level 110 mmol/L Carbon Dioxide Level 25 mmol/L Anion Gap 6.0 mmol/L Blood Urea Nitrogen 18 mg/dl Creatinine 0.99 mg/dl Est Creatinine Clear Calc Drug Dose 81.2 ml/min Estimated GFR () 80.3 Estimated GFR (Non- 69.3 BUN/Creatinine Ratio 17.9 Random Glucose 98 mg/dl Calcium Level 9.3 mg/dl Total Bilirubin 0.5 mg/dl Direct Bilirubin 0.1 mg/dl Aspartate Amino Transf (AST/SGOT) 27 U/L Alanine Aminotransferase (ALT/SGPT) 52 U/L Alkaline Phosphatase 86 U/L Total Protein 8.4 gm/dl Albumin 4.3 gm/dl Lipase 115 U/L Assessment and Plan Ms. Peres is a 42y/oF with 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 kidney stones, frequent UTIs, hypothyroidism, migraine headaches, ASD, gluten allergy, depression presented with 4 days of progressively worsening R flank pain radiating to abdomen, CT abdomen did not reveal any stones however it was with contrast Abdominal and flank pain - Afebrile with normal WBC - CT abdomen with contrast: mild non-specific dilation of proximal to mid jejunal loop 34mm concerning for possible early small bowel obstruction or focal enteritis; no free air; diverticulosis without diverticulitis; no appendicitis - Lumbar spine CT: no fractures, suspected L paracentral disc protrusion at L5- L1 iv hydromorphone, iv toradol, Oxybutynin 5mg BID for relaxation possible pyelonephritis pos, on Rocephin Hypothyroidism Synthroid Depression bupropion 100mg daily Migraine sumatriptan, rizatriptan, topiramate FEN/GI Famotidine 20mg daily - Zofran 4mg IV PRN for nausea - Bowel regimen ordered DVT prop: SCDs Full code
[2018-04-19] MEDS: ONDANSETRON INJ 2 MG/ML 2 ML VIAL IV PRN (17:09)
[2018-04-19] MEDS: hydrOXYzine HCL 25 MG TAB PO SCH (20:31)
[2018-04-19] MEDS: TOPIRAMATE 100 MG TAB PO SCH (20:32)
[2018-04-19 23:15] VITALS: BP 123/85; PULSE 64; TEMP 37; O2SAT 99
[2018-04-19] MEDS: CEFTRIAXONE SOD INJ 1 GM in DEXTROSE 5% ADD-VANTAGE 50ML 50 ML IV SCH (23:20)
[2018-04-20] MEDS: SODIUM CHLORIDE 0.9% 1000ML 1,000 ML IV SCH ×4 (00:02→18:27)
[2018-04-20] MEDS: ACETAMINOPHEN IV 1,000 MG in EMPTY BAG 0 ML IV SCH ×3 (00:03→17:54)
[2018-04-20] MEDS: LEVOTHYROXINE 50 MCG TAB PO SCH (06:24)
[2018-04-20] MEDS: VITAMIN B COMPLEX TAB PO SCH (06:25)
--- NOTE | 2018-04-20 08:01 | Progress Note ---
Subjective Date of Service: Apr 20, 2018. Subjective Pt evaluation today including: conversation w/ patient, physical exam, chart review, lab review, review of inpatient medication list Pain: Much improved PO Intake: Tolerating p.o. without emesis 42-year-old female admitted yesterday due to back pain radiating to the lower abdomen with a normal CT scan of the urinary tract and questionable jejunal inflammation. She reports she feels much improved on her current regimen. Rocephin and Ofrimev are hanging. She denies stone passage or hematuria. Past notes are reviewed. Problem List Medical Problems: (1) Abdominal pain Status: Acute (2) Back pain Status: Acute (3) Intractable nausea and vomiting Status: Acute (4) Post-op pain Status: Acute (5) Postoperative hematoma Status: Acute Review of Systems Constitutional: No fever, No chills Eyes: No worsening of vision ENT: No hearing loss Respiratory: No wheezing, No shortness of breath Cardiac: No chest pain Abdomen: No vomiting, No diarrhea Female : No hematuria Neurologic: No memory loss Psychiatric: No depression symptoms Endo: No excessive thirst Skin: No new/changing skin lesions Objective Vital Signs Date Time Temp Pulse Resp B/P (MAP) Pulse Ox O2 Delivery O2 Flow Rate FiO2 04/20/18 00:25 Room Air 04/19/18 23:15 37.0 64 16 123/85 (98) 99 Room Air 04/19/18 19:40 Room Air 04/19/18 15:19 36.5 58 18 114/79 (91) 97 Room Air 04/19/18 08:00 Room Air Physical Exam General Appearance: WD/WN, no apparent distress ENT: normal ENT inspection Neck: supple, no adenopathy Respiratory/Chest: no respiratory distress, no accessory muscle use Cardiovascular: no JVD Abdomen: non tender, soft Extremities: non-tender Neurologic/Psychiatric: alert Skin: normal color Assessment and Plan A/P 42-year-old female with improved back and abdominal pain. I would tend to doubt a origin of the pain seen her CT scan findings and presentation. Normal white blood cell count and creatinine today. Urine culture pending but the patient remains afebrile. Patient is recently moved to [place] been seen in the emergency room there for difficulties with recurrent UTIs and back pain. It is been recommended that she establish care at her new home but she notes that she travels to [place] frequently as well. She can follow-up with our service in 2-3 weeks for symptom check and/or we can help facilitate establishing care at her new location. Patient vocalizes understanding of the treatment plan. No worrisome findings this admission, no need for acute surgical intervention. Thank you for allowing us to participate in this patient's care. Please recall our service as needed any new questions or concerns. Discharge planning: home
[2018-04-20 08:07] VITALS: BP 114/69; PULSE 53; TEMP 36.4; O2SAT 99
[2018-04-20] MEDS: PANTOprazole INJ 40 MG in SYRINGE 0 ML IV SCH ×2 (08:39→20:33)
[2018-04-20] MEDS: OXYBUTYNIN CHLORIDE 5 MG TAB PO SCH ×2 (08:39→20:33)
[2018-04-20] MEDS: FAMOTIDINE 20 MG TAB PO SCH (08:39)
[2018-04-20] MEDS: CHOLECALCIFEROL 1000 INTER.UNIT TAB PO SCH (08:40)
[2018-04-20] MEDS: BuPROPion SR 100 MG TABCR PO SCH (08:40)
[2018-04-20] MEDS: ONDANSETRON INJ 2 MG/ML 2 ML VIAL IV PRN ×2 (11:36→20:37)
[2018-04-20 14:59] VITALS: BP 126/93; PULSE 75; TEMP 37; O2SAT 93
--- NOTE | 2018-04-20 15:02 | Progress Note ---
Subjective Date of Service: Apr 20, 2018. Subjective this pt is improving but still with mostly nausea and receeding pain, urology does not want to pursue any additional testing Problem List Medical Problems: (1) Abdominal pain Status: Acute (2) Back pain Status: Acute (3) Intractable nausea and vomiting Status: Acute (4) Post-op pain Status: Acute (5) Postoperative hematoma Status: Acute Review of Systems Constitutional: + weakness, + fatigue, No fever, No chills Respiratory: No cough, No shortness of breath Cardiac: No chest pain, No edema Abdomen: + pain, + nausea, No vomiting, No diarrhea, No constipation Musculoskeletal: No joint pain, No muscle pain Female : + urinary frequency, + hematuria, No dysuria Psychiatric: No depression symptoms, No anhedonism Objective Vital Signs Date Time Temp Pulse Resp B/P (MAP) Pulse Ox O2 Delivery O2 Flow Rate FiO2 04/20/18 08:07 36.4 53 18 114/69 (84) 99 04/20/18 08:00 Room Air 04/20/18 00:25 Room Air 04/19/18 23:15 37.0 64 16 123/85 (98) 99 Room Air 04/19/18 19:40 Room Air 04/19/18 15:19 36.5 58 18 114/79 (91) 97 Room Air Physical Exam General Appearance: WD/WN, + mild distress Eyes: normal inspection, sclerae normal Neck: supple, no JVD Respiratory/Chest: chest non-tender, lungs clear, + respiratory distress Cardiovascular: regular rate, rhythm, no murmur Abdomen: normal bowel sounds, soft, + guarding, + tenderness Extremities: no pedal edema, no calf tenderness Neurologic/Psychiatric: alert, oriented x 3 Assessment and Plan Ms. Peres is a 42y/oF with 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 kidney stones, frequent UTIs, hypothyroidism, migraine headaches, ASD, gluten allergy, depression presented with 4 days of progressively worsening R flank pain radiating to abdomen, CT abdomen did not reveal any stones however it was with contrast Abdominal and flank pain--> resolving - CT abdomen with contrast: mild non-specific dilation of proximal to mid jejunal loop 34mm concerning for possible early small bowel obstruction or focal enteritis; no free air; diverticulosis without diverticulitis; no appendicitis, is clinically resolving - Lumbar spine CT: no fractures, suspected L paracentral disc protrusion at L5- L1 iv hydromorphone, iv toradol, Oxybutynin 5mg BID for relaxation urine culture is pin point growth re incubating continues on Rocephin Hypothyroidism clinically stable Synthroid Depression seems to be controlled with bupropion 100mg daily Migraine had headache 04/19, now resolved, typically uses sumatriptan, rizatriptan, topiramate GERD Famotidine 20mg daily - Zofran 4mg IV PRN for nausea - Bowel regimen ordered DVT prop: SCDs Full code Discharge planning: home
[2018-04-20] MEDS: PROMETHAZINE HCL INJ 12.5 MG in SODIUM CHLORIDE 0.9% 50ML 50 ML IV PRN (15:50)
[2018-04-20] MEDS: TOPIRAMATE 100 MG TAB PO SCH (20:33)
[2018-04-20] MEDS: hydrOXYzine HCL 25 MG TAB PO SCH (20:34)
[2018-04-20 22:46] VITALS: BP 113/75; PULSE 65; TEMP 37; O2SAT 96
[2018-04-20] MEDS: CEFTRIAXONE SOD INJ 1 GM in DEXTROSE 5% ADD-VANTAGE 50ML 50 ML IV SCH (23:18)
[2018-04-21] MEDS: ACETAMINOPHEN IV 1,000 MG in EMPTY BAG 0 ML IV SCH ×4 (01:02→23:27)
[2018-04-21] MEDS: KETOROLAC TROMETHAMINE 30 MG/ML VIAL IV PRN (01:08)
[2018-04-21] MEDS: SODIUM CHLORIDE 0.9% 1000ML 1,000 ML IV SCH ×3 (03:22→19:24)
[2018-04-21] MEDS: LEVOTHYROXINE 50 MCG TAB PO SCH (06:19)
[2018-04-21] MEDS: VITAMIN B COMPLEX TAB PO SCH (06:19)
[2018-04-21 07:23] VITALS: BP 128/90; PULSE 67; TEMP 36.9; O2SAT 98
[2018-04-21] MEDS: OXYBUTYNIN CHLORIDE 5 MG TAB PO SCH ×2 (07:24→20:38)
[2018-04-21] MEDS: FAMOTIDINE 20 MG TAB PO SCH (07:24)
[2018-04-21] MEDS: BuPROPion SR 100 MG TABCR PO SCH (07:24)
[2018-04-21] MEDS: CHOLECALCIFEROL 1000 INTER.UNIT TAB PO SCH (07:24)
[2018-04-21] MEDS ORDERED: BISACODYL 10 MG SUPP PR STA (09:23)
[2018-04-21] MEDS ORDERED: SOD PHOSPHATE/SOD BIPHOSPHATE ENEMA 132 ML BTL PR PRN ×2 (09:30→09:45)
[2018-04-21] MEDS ORDERED: BISACODYL 10 MG SUPP PR PRN (09:30)
[2018-04-21 09:40] LABS: CALCIUM 8.5 mg/dl (8.5-10.1); CREATININE 0.89 mg/dl (0.60-1.20)
[2018-04-21 09:55] LABS: BASO % 1.2 %; BASO ABS # 0.05 K/uL (0-0.2); EOS ABS # 0.13 K/uL (0-0.5); HEMATOCRIT 35.6 % (37-47); HEMOGLOBIN 11.6 g/dL (12.0-16.0); IG# 0.02 K/uL (0.00-0.02); LYMPH % 36.4 %; LYMPH ABS # 1.56 K/uL (1.2-3.4); MEAN CELL VOLUME 89.2 fL (80-100); MEAN CORPUSCULAR HEMOGLOBIN 29.1 pg (25-34); MEAN CORPUSCULAR HGB CONC 32.6 g/dl (32-36); MEAN PLATELET VOLUME 8.9 fL (7.4-10.4); MONO % 8.4 %; MONO ABS # 0.36 K/uL (0.11-0.59); NEUT % 50.5 %; NEUT ABS # 2.16 K/uL (1.4-6.5); PLATELET COUNT 207 K/uL (130-400); RED CELL DISTRIBUTION WIDTH CV 13.9 % (11.5-14.5); RED CELL DISTRIBUTION WIDTH SD 45.3 fL (36.4-46.3); WHITE BLOOD COUNT 4.28 K/uL (4.8-10.8)
[2018-04-21 10:31] LABS: POTASSIUM 3.7 mmol/L (3.5-5.1)
[2018-04-21] MEDS: ONDANSETRON INJ 2 MG/ML 2 ML VIAL IV PRN ×2 (11:21→19:24)
--- NOTE | 2018-04-21 14:08 | Progress Note ---
Subjective Date of Service: Apr 21, 2018. Subjective Pt evaluation today including: conversation w/ patient, conversation w/ family , physical exam, chart review, lab review, review of studies, review of inpatient medication list Decreased appetite, mild nausea , no vomiting, on passing some small gas, no bowel movement yet Problem List Medical Problems: (1) Abdominal pain Status: Acute (2) Back pain Status: Acute (3) Intractable nausea and vomiting Status: Acute (4) Post-op pain Status: Acute (5) Postoperative hematoma Status: Acute Review of Systems Constitutional: + weakness, + fatigue, No fever, No chills, No sweats, No weight loss, No problem reported Eyes: No worsening of vision, No eye pain, No redness, No discharge, No diplopia ENT: No hearing loss, No unusual epistaxis, No nasal symptoms, No sore throat, No tinnitus, No dental problems, No trouble swallowing Respiratory: No cough, No sputum, No wheezing, No shortness of breath, No dyspnea on exertion, No dyspnea at rest, No hemoptysis Cardiac: No chest pain, No orthopnea, No PND, No edema, No claudication, No palpitations Abdomen: + see HPI, + constipation, No pain, No nausea, No vomiting, No diarrhea Musculoskeletal: No joint pain, No muscle pain, No swelling, No calf pain Female : No dysuria, No urinary frequency, No hematuria, No incontinence, No abnormal vaginal bleeding, No vaginal discharge Neurologic: No memory loss, No paralysis, No weakness, No numbness/tingling, No vertigo, No balance problems Psychiatric: No depression symptoms, No anhedonism, No anxiety, No insomnia, No substance abuse Heme: No abnormal bleeding/bruising, No clotting problems, No swollen lymph nodes, No night sweats Endo: No fatigue, No excessive thirst, No excessive urination Skin: No rash, No itch, No new/changing skin lesions, No color change, No bleeding Objective Vital Signs Date Time Temp Pulse Resp B/P (MAP) Pulse Ox O2 Delivery O2 Flow Rate FiO2 04/21/18 07:39 Room Air 04/21/18 07:23 36.9 67 18 128/90 (103) 98 Room Air 04/20/18 22:46 37.0 65 18 113/75 (88) 96 Room Air 04/20/18 20:05 Room Air 04/20/18 14:59 37.0 75 18 126/93 (104) 93 Room Air Physical Exam General Appearance: WD/WN, no apparent distress, + obese Eyes: normal inspection, PERRL, EOMI, sclerae normal ENT: normal ENT inspection, hearing grossly normal, pharynx normal Neck: supple, no adenopathy, thyroid normal, no JVD, no carotid bruits, trachea midline Respiratory/Chest: chest non-tender, lungs clear, normal breath sounds, no respiratory distress, no accessory muscle use, + decreased breath sounds Cardiovascular: regular rate, rhythm, no edema, no gallop, no JVD, no murmur Abdomen: normal bowel sounds, non tender, soft, no organomegaly, no pulsatile mass, + tenderness (Mild left abdomen) Extremities: normal range of motion, non-tender, normal inspection, no pedal edema, no calf tenderness, normal capillary refill, pelvis stable Neurologic/Psychiatric: cushion sewer II-XII nml as tested, no motor/sensory deficits, alert, normal mood/affect, oriented x 3 Skin: normal color, warm/dry, no rash Lymphatic: no adenopathy Laboratory Results Last 24 Hours Test 04/21/18 08:41 04/21/18 09:53 White Blood Count 4.28 K/uL Red Blood Count 3.99 M/uL Hemoglobin 11.6 g/dL Hematocrit 35.6 % Mean Corpuscular Volume 89.2 fL Mean Corpuscular Hemoglobin 29.1 pg Mean Corpuscular Hemoglobin Concent 32.6 g/dl Platelet Count 207 K/uL Mean Platelet Volume 8.9 fL Neutrophils (%) (Auto) 50.5 % Lymphocytes (%) (Auto) 36.4 % Monocytes (%) (Auto) 8.4 % Eosinophils (%) (Auto) 3.0 % Basophils (%) (Auto) 1.2 % Neutrophils # (Auto) 2.16 K/uL Lymphocytes # (Auto) 1.56 K/uL Monocytes # (Auto) 0.36 K/uL Eosinophils # (Auto) 0.13 K/uL Basophils # (Auto) 0.05 K/uL RDW Standard Deviation 45.3 fL RDW Coefficient of Variation 13.9 % Immature Granulocyte % (Auto) 0.5 % Immature Granulocyte # (Auto) 0.02 K/uL Red Blood Cell Morphology Unremarkable Sodium Level 145 mmol/L Potassium Level mmol/L 3.7 mmol/L Chloride Level 113 mmol/L Carbon Dioxide Level 24 mmol/L Anion Gap 7.0 mmol/L Blood Urea Nitrogen 9 mg/dl Creatinine 0.89 mg/dl Est Creatinine Clear Calc Drug Dose 90.3 ml/min Estimated GFR () 91.4 Estimated GFR (Non- 78.8 BUN/Creatinine Ratio 10.2 Random Glucose 88 mg/dl Calcium Level 8.5 mg/dl Magnesium Level mg/dl 2.2 mg/dl Assessment and Plan 42y/oF with admitted on April 19, 2018 with 4 days of progressively worsening R flank pain radiating to abdomen, CT abdomen did not reveal any stones however it was with contrast 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 kidney stones, frequent UTIs, hypothyroidism, migraine headaches, ASD, gluten allergy, depression Possible from constipation associated with abdominal and flank pain--> resolving CT abdomen with contrast: mild non-specific dilation of proximal to mid jejunal loop 34mm concerning for possible early small bowel obstruction or focal enteritis; no free air; diverticulosis without diverticulitis; no appendicitis, is clinically resolving Lumbar spine CT: no fractures, suspected L paracentral disc protrusion at L5-L1 Liquid diet as tolerated Supportive care, Suppository and Fleet enema if needed dc iv hydromorphone, continue iv toradol, Oxybutynin 5mg BID for relaxation , urology saw patient, no need for acute surgical intervention. urine culture is pin point growth re incubating continues on Rocephin will continue Hypothyroidism clinically stable Synthroid Depression seems to be controlled with bupropion 100mg daily Migraine had headache 04/19, now resolved, typically uses sumatriptan, rizatriptan, topiramate GERD Famotidine 20mg daily - Zofran 4mg IV PRN for nausea - Bowel regimen ordered DVT prop: SCDs Full code Talk to the nurse, increase activity out of bed to the chair Discharge planning: home
[2018-04-21] MEDS ORDERED: KETOROLAC TROMETHAMINE 30 MG/ML VIAL IV PRN (14:15)
[2018-04-21 15:35] VITALS: BP 149/90; PULSE 67; TEMP 37; O2SAT 100
[2018-04-21] MEDS: PROMETHAZINE HCL INJ 12.5 MG in SODIUM CHLORIDE 0.9% 50ML 50 ML IV PRN (16:24)
[2018-04-21] MEDS: PANTOprazole SOD 40 MG TAB PO SCH (20:38)
[2018-04-21] MEDS: TOPIRAMATE 100 MG TAB PO SCH (20:38)
[2018-04-21] MEDS: hydrOXYzine HCL 25 MG TAB PO SCH (20:39)
[2018-04-21 22:44] VITALS: BP 128/86; PULSE 59; TEMP 37.3; O2SAT 99
[2018-04-22] MEDS: CEFTRIAXONE SOD INJ 1 GM in DEXTROSE 5% ADD-VANTAGE 50ML 50 ML IV SCH (00:02)
[2018-04-22] MEDS: SODIUM CHLORIDE 0.9% 1000ML 1,000 ML IV SCH ×2 (02:47→11:12)
[2018-04-22] MEDS: PROMETHAZINE HCL INJ 12.5 MG in SODIUM CHLORIDE 0.9% 50ML 50 ML IV PRN ×2 (02:47→09:47)
[2018-04-22 06:08] LABS: BASO % 0.7 %; BASO ABS # 0.04 K/uL (0-0.2); EOS % 2.6 %; EOS ABS # 0.14 K/uL (0-0.5); HEMATOCRIT 33.6 % (37-47); IG# 0.01 K/uL (0.00-0.02); LYMPH % 38.7 %; MEAN CELL VOLUME 89.1 fL (80-100); MEAN CORPUSCULAR HEMOGLOBIN 29.2 pg (25-34); MEAN CORPUSCULAR HGB CONC 32.7 g/dl (32-36); MEAN PLATELET VOLUME 10.4 fL (7.4-10.4); MONO % 6.6 %; MONO ABS # 0.36 K/uL (0.11-0.59); NEUT % 51.2 %; NEUT ABS # 2.77 K/uL (1.4-6.5); PLATELET COUNT 212 K/uL (130-400); RED CELL DISTRIBUTION WIDTH SD 45.5 fL (36.4-46.3); WHITE BLOOD COUNT 5.42 K/uL (4.8-10.8)
[2018-04-22] MEDS: LEVOTHYROXINE 50 MCG TAB PO SCH (06:18)
[2018-04-22] MEDS: VITAMIN B COMPLEX TAB PO SCH (06:18)
[2018-04-22 06:37] LABS: CALCIUM 8.4 mg/dl (8.5-10.1); CREATININE 0.85 mg/dl (0.60-1.20); POTASSIUM 3.6 mmol/L (3.5-5.1)
[2018-04-22 07:33] VITALS: BP 120/84; PULSE 55; TEMP 36.5; O2SAT 98
[2018-04-22] MEDS: ONDANSETRON INJ 2 MG/ML 2 ML VIAL IV PRN (08:35)
[2018-04-22] MEDS: ACETAMINOPHEN IV 1,000 MG in EMPTY BAG 0 ML IV SCH ×2 (08:37→15:58)
[2018-04-22] MEDS: KETOROLAC TROMETHAMINE 30 MG/ML VIAL IV PRN ×2 (08:37→19:20)
[2018-04-22] MEDS: BuPROPion SR 100 MG TABCR PO SCH (08:38)
[2018-04-22] MEDS: FAMOTIDINE 20 MG TAB PO SCH (08:38)
[2018-04-22] MEDS: OXYBUTYNIN CHLORIDE 5 MG TAB PO SCH ×2 (08:39→19:20)
[2018-04-22] MEDS: PANTOprazole SOD 40 MG TAB PO SCH ×2 (08:39→19:20)
[2018-04-22] MEDS: CHOLECALCIFEROL 1000 INTER.UNIT TAB PO SCH (08:39)
[2018-04-22] MEDS ORDERED: MAGNESIUM CITRATE 296 ML/BTL PO ONE (11:45)
--- NOTE | 2018-04-22 12:12 | Clinical Documentation Query ---
CALDERON Horan : CLINICAL DOCUMENTATION QUERY Patient is a 42 year old female with a history of urethral transplant in the setting of kidney stones, frequent UTI's, presenting with progressively worsening right flank pain. Documentation includes the following: "urine culture is pin point growth re incubating continues on Rocephin". As appropriate, consider documentation of the possible/suspected condition you are actively treating. Thank you. In your clinical opinion is this patient being managed for: ( ) (Possible/Suspected) Urinary tract infection ( x) Not Agree, final result has no UTI ( ) Other explanation of clinical findings (No explanation is considered a No Response) ( ) Unable to determine ( ) Need to Discuss (Phone CDS or qliq) (No discussion is considered a No Response) The medical record reflects the following clinical findings, treatment, and risk factors. Clinical Indicators: As above Treatment: IV Rocephin Risk Factors: Gender, history of frequent UTI's, urological history. Please clarify and document your clinical opinion in the progress notes and discharge summary. Terms such as "probable", "suspected", "likely", "questionable", "possible", or "still to be ruled out" are acceptable. IF IN AGREEMENT, YOU MUST DOCUMENT ABOVE DIAGNOSTIC STATEMENT IN DAILY PROGRESS NOTES AND DISCHARGE SUMMARY. This document is not part of the patient's record. Thank You, Behzad Osorio, HEATHER [phone]
[2018-04-22] MEDS: POLYETHYLENE (MIRALAX) 17 GM PACK PO SCH (12:59)
--- NOTE | 2018-04-22 15:36 | Progress Note ---
Subjective Date of Service: Apr 22, 2018. Subjective Pt evaluation today including: conversation w/ patient, physical exam, chart review, lab review, review of studies, conversation w/ learning and development consultant, review of inpatient medication list Report feeling generalized weakness, nausea aeration, passing some gas, had one small bowel movement yesterday, no vomiting no appetite Problem List Medical Problems: (1) Abdominal pain Status: Acute (2) Back pain Status: Acute (3) Intractable nausea and vomiting Status: Acute (4) Post-op pain Status: Acute (5) Postoperative hematoma Status: Acute Review of Systems Constitutional: + weakness, + fatigue, No fever, No chills, No sweats, No weight loss, No problem reported Eyes: No worsening of vision, No eye pain, No redness, No discharge, No diplopia ENT: No hearing loss, No unusual epistaxis, No nasal symptoms, No sore throat, No tinnitus, No dental problems, No trouble swallowing Respiratory: No cough, No sputum, No wheezing, No shortness of breath, No dyspnea on exertion, No dyspnea at rest, No hemoptysis Cardiac: No chest pain, No orthopnea, No PND, No edema, No claudication, No palpitations Abdomen: + nausea, No pain, No vomiting, No diarrhea, No constipation Musculoskeletal: No joint pain, No muscle pain, No swelling, No calf pain Female : No dysuria, No urinary frequency, No hematuria, No incontinence, No abnormal vaginal bleeding, No vaginal discharge Neurologic: No memory loss, No paralysis, No weakness, No numbness/tingling, No vertigo, No balance problems Psychiatric: No depression symptoms, No anhedonism, No anxiety, No insomnia, No substance abuse Heme: No abnormal bleeding/bruising, No clotting problems, No swollen lymph nodes, No night sweats Endo: No fatigue, No excessive thirst, No excessive urination Skin: No rash, No itch, No new/changing skin lesions, No color change, No bleeding Objective Vital Signs Date Time Temp Pulse Resp B/P (MAP) Pulse Ox O2 Delivery O2 Flow Rate FiO2 04/22/18 10:00 Room Air 04/22/18 07:33 36.5 55 18 120/84 (96) 98 Room Air 04/21/18 22:44 37.3 59 18 128/86 (100) 99 Room Air 04/21/18 20:00 Nasal Cannula 04/21/18 16:00 Room Air 04/21/18 15:35 37.0 67 18 149/90 (109) 100 Room Air Physical Exam General Appearance: WD/WN, no apparent distress Eyes: normal inspection, PERRL, EOMI, sclerae normal ENT: normal ENT inspection, hearing grossly normal, pharynx normal Neck: supple, no adenopathy, thyroid normal, no JVD, no carotid bruits, trachea midline Respiratory/Chest: chest non-tender, lungs clear, normal breath sounds, no respiratory distress, no accessory muscle use Cardiovascular: regular rate, rhythm, no edema, no gallop, no JVD, no murmur Abdomen: normal bowel sounds, soft, no organomegaly, no pulsatile mass, + tenderness (Mild tender in left mid abdomen) Extremities: normal range of motion, non-tender, normal inspection, no pedal edema, no calf tenderness, normal capillary refill, pelvis stable Neurologic/Psychiatric: traveling operator II-XII nml as tested, no motor/sensory deficits, alert, normal mood/affect, oriented x 3 Skin: normal color, warm/dry, no rash Lymphatic: no adenopathy Laboratory Results Last 24 Hours Test 04/22/18 05:44 White Blood Count 5.42 K/uL Red Blood Count 3.77 M/uL Hemoglobin 11.0 g/dL Hematocrit 33.6 % Mean Corpuscular Volume 89.1 fL Mean Corpuscular Hemoglobin 29.2 pg Mean Corpuscular Hemoglobin Concent 32.7 g/dl Platelet Count 212 K/uL Mean Platelet Volume 10.4 fL Neutrophils (%) (Auto) 51.2 % Lymphocytes (%) (Auto) 38.7 % Monocytes (%) (Auto) 6.6 % Eosinophils (%) (Auto) 2.6 % Basophils (%) (Auto) 0.7 % Neutrophils # (Auto) 2.77 K/uL Lymphocytes # (Auto) 2.10 K/uL Monocytes # (Auto) 0.36 K/uL Eosinophils # (Auto) 0.14 K/uL Basophils # (Auto) 0.04 K/uL RDW Standard Deviation 45.5 fL RDW Coefficient of Variation 14.0 % Immature Granulocyte % (Auto) 0.2 % Immature Granulocyte # (Auto) 0.01 K/uL Sodium Level 145 mmol/L Potassium Level 3.6 mmol/L Chloride Level 115 mmol/L Carbon Dioxide Level 24 mmol/L Anion Gap 6.0 mmol/L Blood Urea Nitrogen 10 mg/dl Creatinine 0.85 mg/dl Est Creatinine Clear Calc Drug Dose 94.6 ml/min Estimated GFR () 96.6 Estimated GFR (Non- 83.3 BUN/Creatinine Ratio 11.3 Random Glucose 99 mg/dl Calcium Level 8.4 mg/dl Magnesium Level 2.0 mg/dl Assessment and Plan 42y/oF with admitted on April 19, 2018 with 4 days of progressively worsening R flank pain radiating to abdomen, CT abdomen did not reveal any stones however it was with contrast 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 kidney stones, frequent UTIs, hypothyroidism, migraine headaches, ASD, gluten allergy, depression Possible from constipation associated with abdominal and flank pain His suppository yesterday had small bowel movement Had foot edema today has [address] abdomen with contrast: mild non-specific dilation of proximal to mid jejunal loop 34mm concerning for possible early small bowel obstruction or focal enteritis; no free air; diverticulosis without diverticulitis; Stop IV fluids, increase activity out of bed to chair, diet as tolerated Aggressive laxative if needed Lumbar spine CT: no fractures, suspected L paracentral disc protrusion at L5-L1 Supportive care dc iv Phenergan hydromorphone, continue iv toradol, Oxybutynin 5mg BID for relaxation , urology saw patient, no need for acute surgical intervention. urine culture normal jennifer, discontinue Rocephin Hypothyroidism clinically stable Synthroid Depression seems to be controlled with bupropion 100mg daily Migraine had headache 04/19, now resolved, typically uses sumatriptan, rizatriptan, topiramate GERD Famotidine 20mg daily - Zofran 4mg IV PRN for nausea - Bowel regimen ordered DVT prop: SCDs Full code increase activity out of bed to the chair, possible discharge home Continued [facility] stay due to: home environment unsafe for pt Discharge planning: home
[2018-04-22] MEDS: TOPIRAMATE 100 MG TAB PO SCH (20:47)
[2018-04-22] MEDS: hydrOXYzine HCL 25 MG TAB PO SCH (20:47)
[2018-04-22 22:37] VITALS: BP 132/88; PULSE 59; TEMP 37.1; O2SAT 98
[2018-04-23] MEDS: ACETAMINOPHEN IV 1,000 MG in EMPTY BAG 0 ML IV SCH ×2 (00:18→07:45)
[2018-04-23] MEDS: LEVOTHYROXINE 50 MCG TAB PO SCH (06:32)
[2018-04-23] MEDS: VITAMIN B COMPLEX TAB PO SCH (06:32)
[2018-04-23] MEDS: BuPROPion SR 100 MG TABCR PO SCH (07:38)
[2018-04-23] MEDS: FAMOTIDINE 20 MG TAB PO SCH (07:42)
[2018-04-23] MEDS: OXYBUTYNIN CHLORIDE 5 MG TAB PO SCH (07:42)
[2018-04-23] MEDS: CHOLECALCIFEROL 1000 INTER.UNIT TAB PO SCH (07:43)
[2018-04-23 07:45] VITALS: BP 144/87; PULSE 50; TEMP 36.6; O2SAT 98
[2018-04-23] MEDS: POLYETHYLENE (MIRALAX) 17 GM PACK PO SCH (07:48)
[2018-04-23] MEDS ORDERED: MRLP17 PO (08:23)
[2018-04-23] MEDS ORDERED: MAGN1SOL7 PO (09:28)
--- NOTE | 2018-04-23 09:31 | Discharge Instructions ---
Discharge Instructions Date of Service Apr 23, 2018. Admission Reason for Admission: Acute Abdominal Pain Discharge Discharge Diagnosis / Problem: constipation associated with abdominal and flank pain Discharge Goals Goal(s): Decrease discomfort, Improve function, Increase independence, Improve disease control, Improve nutritional status, Learn about illness, Diagnostic testing, Therapeutic intervention, Prevent Disease Progression, Specific goals Activity Recommendations Activity Limitations: resume your previous activity . Instructions / Follow-Up Instructions / Follow-Up you have constipation associated with abdominal and flank pain I am giving you Miralax daily, hold when have more than 2 bowel movement a day, I give you Magnesium citrate , only use have constipation you Lumbar spine CT: suspected L paracentral disc protrusion at L5-L1, please follow up this with pcp - you need to follow up with your primary care physician in 1 week, - take medication as instructed, never overdose or any misuse, or take with alcohol, because misuse of medicine may cause organ damage or , call me , or your primary care physician if have questions of discharge medicaitons. - call your primary care physician, or go to local emergency room if has any fever/chill, chest pain, shortness of breathing, nausea/vomiting/abdominal pain , facial droop/slurry speech/local weakness, or if has any questions. - fall precaution - diet as instructed Current Hospital Diet Patient's current hospital diet: Regular Diet, Gluten Free Diet Discharge Diet Recommended Diet: Regular Diet Pending Studies Studies pending at discharge: no Medical Emergencies . Who to Call and When: Medical Emergencies: If at any time you feel your situation is an emergency, please call 911 immediately. . Non-Emergent Contact Non-Emergency issues call your: Primary Care Provider . . "Provider Documentation" section prepared by Da Funes. .
[2018-04-23 09:42] VITALS: BP 144/87; PULSE 50; TEMP 36.6; O2SAT 98
--- NOTE | 2018-04-23 16:07 | Discharge Summary ---
Discharge Summary Date of Service Apr 23, 2018. Discharge Summary Admission Date: Apr 18, 2018 at 22:03 Discharge Date: Apr 23, 2018 Discharge Disposition: Home Principal Diagnosis: constipation associated with abdominal and flank pain Problems/Secondary Diagnoses: suspected L paracentral disc protrusion at L5-L1, Immunizations: Have You Had Influenza Vaccine: Unknown History of Tetanus Vaccine?: Unknown History of Pneumococcal: Unknown History of Hepatitis B Vaccine: Unknown Procedures: No Consultations: No Medication Reconciliation New Medications: Magnesium Citrate (Magnesium Citrate) 1.745 Gm/30 Ml Machelle 300 ML PO once for 1 Day Polyethylene (Miralax) 17 Gm Pow 17 GM PO DAILY for 14 Days Continued Medications: B-Complex Vitamins (Vitamin B Complex) 1 Tab Tab 1 TAB PO DAILYBB Bupropion HCl (Bupropion HCl Sr) 100 Mg Tabcr 100 MG PO DAILY Cholecalciferol (Vitamin D3) 2,000 Unit Cap 1 CAP PO DAILY for 90 Days, #90 CAP 3 Refills Famotidine (Pepcid) 20 Mg Tab 20 MG PO DAILY, TAB Hydroxyzine Pamoate (Vistaril) 50 Mg Cap 1 CAP PO HS for 30 Days, CAP Ibuprofen (Ibuprofen) 800 Mg Tab 1 TAB PO TID Levothyroxine Sodium (Levothyroxine Sodium) 50 Mcg Tab 1 TAB PO DAILY for 90 Days, #90 TAB 3 Refills Ondansetron (Ondansetron HCl) 4 Mg Tab 1 TAB PO PRN for Nausea Rizatriptan Benzoate (Rizatriptan Benzoate) 10 Mg Tab 10 MG PO UD PRN for Migraine Sumatriptan Succinate (Imitrex Statdose) 6 Mg/0.5 Ml Inj 6 MG SC DIRECTED Topiramate (Topamax) 100 Mg Tab 300 MG PO HS, 0 Refills Valacyclovir (Valtrex) 500 Mg Tab 1 TAB PO Q8 for 30 Days, #90 TAB 11 Refills Discharge Exam Report feeling much better, has bowel movement, tolerating diet, no more abdominal pain, no nausea vomiting Review of Systems: Constitutional: No fever, No chills, No sweats, No weight loss, No weakness , No fatigue, No problem reported Eyes: No worsening of vision, No eye pain, No redness, No discharge, No diplopia, No problem reported ENT: No hearing loss, No unusual epistaxis, No nasal symptoms, No sore throat, No tinnitus, No dental problems, No trouble swallowing, No problem reported Respiratory: No cough, No sputum, No wheezing, No shortness of breath, No dyspnea on exertion, No dyspnea at rest, No hemoptysis, No problem reported Cardiovascular: No chest pain, No orthopnea, No PND, No edema, No claudication, No palpitations, No problem reported Abdomen: No pain, No nausea, No vomiting, No diarrhea, No constipation, No GI bleeding, No problem reported Musculoskeletal: No joint pain, No muscle pain, No swelling, No calf pain, No problem reported Genitourinary - Female: No dysuria, No urinary frequency, No urinary urgency , No urinary incontinence, No urinary retention, No hematuria, No dysmenorrhea, No menorrhagia, No metrorrhagia, No rash, No vaginal bleeding, No vaginal discharge, No vaginal itching, No vulvodynia, No , No problem reported Neurologic: No memory loss, No paralysis, No weakness, No numbness/tingling , No vertigo, No balance problems, No problem reported Psychiatric: No depression symptoms, No anhedonism, No anxiety, No insomnia , No substance abuse, No problem reported Endocrine: No fatigue, No excessive thirst, No excessive urination, No problem reported Hematologic / Lymphatic: No abnormal bleeding/bruising, No clotting problems , No swollen lymph nodes, No night sweats, No problem reported Integumentary: No rash, No itch, No new/changing skin lesions, No color change, No bleeding, No problem reported Physical Exam: General Appearance: WD/WN, no apparent distress Eyes: normal inspection, PERRL ENT: normal ENT inspection, hearing grossly normal Neck: supple, no adenopathy Respiratory/Chest: chest non-tender, normal breath sounds, no respiratory distress, no accessory muscle use, + decreased breath sounds Cardiovascular: regular rate, rhythm, no edema, no gallop, no JVD, no murmur , normal peripheral pulses Abdomen / GI: normal bowel sounds, non tender, soft, no organomegaly, no pulsatile mass Extremities: normal inspection, no calf tenderness, normal capillary refill , no pedal edema, normal range of motion Neurologic/Psychiatric: philosophy specialist II-XII nml as tested, no motor/sensory deficits , alert, normal mood/affect, normal reflexes Skin: normal color, warm/dry, no rash Hospital Course 42y/oF with admitted on April 19, 2018 with 4 days of progressively worsening R flank pain radiating to abdomen, CT abdomen did not reveal any stones however it was with contrast 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 kidney stones, frequent UTIs, hypothyroidism, migraine headaches, ASD, gluten allergy, depression Possible from constipation associated with abdominal and flank pain CT abdomen with contrast: mild non-specific dilation of proximal to mid jejunal loop 34mm concerning for possible early small bowel obstruction or focal enteritis; no free air; diverticulosis without diverticulitis; His bowel movement after aggressive laxative, has a long discussion about bowel regimens, and future care, advised follow-up with PCP Lumbar spine CT: no fractures, suspected L paracentral disc protrusion at L5-L1 Supportive care Has been on iv Phenergan hydromorphone, she was discontinued yesterday continue iv toradol, Oxybutynin 5mg BID for relaxation , urology saw patient, no need for acute surgical intervention. urine culture normal jennifer, discontinue Rocephin Hypothyroidism clinically stable Synthroid Depression seems to be controlled with bupropion 100mg daily Migraine had headache 04/19, now resolved, typically uses sumatriptan, rizatriptan, topiramate GERD Famotidine 20mg daily - Zofran 4mg IV PRN for nausea - Bowel regimen ordered DVT prop: SCDs Full code increase activity out of bed to the chair, Discharge home in stable condition Instructions / Follow-Up you have constipation associated with abdominal and flank pain I am giving you Miralax daily, hold when have more than 2 bowel movement a day, I give you Magnesium citrate , only use have constipation you Lumbar spine CT: suspected L paracentral disc protrusion at L5-L1, please follow up this with pcp - you need to follow up with your primary care physician in 1 week, - take medication as instructed, never overdose or any misuse, or take with alcohol, because misuse of medicine may cause organ damage or , call me , or your primary care physician if have questions of discharge medicaitons. - call your primary care physician, or go to local emergency room if has any fever/chill, chest pain, shortness of breathing, nausea/vomiting/abdominal pain , facial droop/slurry speech/local weakness, or if has any questions. - fall precaution - diet as instructed Total Time Spent: Greater than 30 minutes This includes examination of the patient, discharge planning, medication reconciliation, and communication with other providers. Discharge Instructions Please refer to the electronic Patient Visit Report (Discharge Instructions) for additional information. Additional Copies To Janet Horan.
== END 2018-04-23 11:08 | disposition home or self-care (01) | DRG 392 ==
LOC: C.EDB 17:12 → C.4E 22:03 → ENRESERV 22:22
PROVIDERS: ADMIT Hospitalist; ATTEND Hospitalist
DX: K59.00 Constipation, unspecified (principal); M51.27 Other intervertebral disc displacement, lumbosacral region; K22.70 Barrett's esophagus without dysplasia; K58.9 Irritable bowel syndrome, unspecified; Z83.3 Family history of diabetes mellitus; Z88.5 Allergy status to narcotic agent; Z87.442 Personal history of urinary calculi; E03.9 Hypothyroidism, unspecified; Z87.440 Personal history of urinary (tract) infections; F32.9 Major depressive disorder, single episode, unspecified; G43.909 Migraine, unspecified, not intractable, without status migrainosus; K21.9 Gastro-esophageal reflux disease without esophagitis

== ENCOUNTER 2019-10-23 14:43 | Observation (INO) ==
[2019-10-23] MEDS ORDERED: ONDANSETRON INJ 2 MG/ML 2 ML VIAL IV STA (15:00)
[2019-10-23] MEDS ORDERED: SODIUM CHLORIDE 0.9% 1000ML 1,000 ML IV SCH (15:00)
[2019-10-23] MEDS ORDERED: MoRPHine SULFATE 10 MG/ML CARP/VIAL IV STA (15:00)
[2019-10-23 15:43] LABS: Basophils # (auto) 0.03 K/uL (0-0.2); Basophils % (auto) 0.5 %; Eosinophils # (auto) 0.03 K/uL (0-0.5); Eosinophils % (auto) 0.5 %; Hematocrit (blood only) 39.9 % (37-47); Hemoglobin 12.9 g/dL (12.0-16.0); Immature Granulocytes # (auto) 0.02 K/uL (0.00-0.02); Immature Granulocytes % (auto) 0.4 %; Lymphocytes # (auto) 1.91 K/uL (1.2-3.4); Lymphocytes % (auto) 34.5 %; Mean Corpuscular Hemoglobin 27.7 pg (25-34); Mean Corpuscular Hgb Conc 32.3 g/dL (32-36); Mean Corpuscular Volume 85.6 fL (80-100); Mean Platelet Volume 10.9 fL (7.4-10.4); Monocytes # (auto) 0.41 K/uL (0.11-0.59); Monocytes % (auto) 7.4 %; Neutrophils # (auto) 3.14 K/uL (1.4-6.5); Neutrophils % (auto) 56.7 %; Platelet Count 253 K/uL (130-400); RDW Coefficient of Variation 14.2 % (11.5-14.5); RDW Standard Deviation 44.5 fL (36.4-46.3); Red Blood Count 4.66 M/uL (4.2-5.4); White Blood Count 5.54 K/uL (4.8-10.8)
[2019-10-23 16:00] LABS: Alanine Aminotransferase 35 U/L (12-78); Albumin Level 3.8 gm/dl (3.4-5.0); Aspartate Aminotransferase 16 U/L (15-37); Blood Urea Nitrogen 12 mg/dl (7-18); Calcium 9.4 mg/dl (8.5-10.1); Carbon Dioxide 29 mmol/L (21-32); Chloride 108 mmol/L (98-107); Creatinine Clr Calc Pharmacy 126.8 ml/min; Est GFR (African American) 122.8; Est GFR (Non-African American) 105.9; Glucose 83 mg/dl (70-99); Lipase 63 U/L (73-393); Potassium 3.7 mmol/L (3.5-5.1); Sodium 139 mmol/L (136-145)
[2019-10-23 16:02] LABS: Partial Thromboplastin Ratio 0.9; Partial Thromboplastin Time 24.3 Seconds (21.0-31.0); Prothrombin Time 10.3 Seconds (9.0-12.0)
--- NOTE | 2019-10-23 16:04 | XRay Report ---
XR chest 1V portable HISTORY: 44 years-old Female Chest Pain acute atypical chest pain COMPARISON: Chest radiograph 10/14/2019 TECHNIQUE: Portable AP view of the chest FINDINGS: Cardiomediastinal and hilar silhouettes are within normal limits. No pneumothorax, pleural effusion, focal airspace consolidation or overt pulmonary edema. Bones of the chest appear grossly intact. IMPRESSION: No acute process. ACT 112: Negative or not required by law. The above report was generated using voice recognition software. It may contain grammatical, syntax o r spelling errors. Electronically signed by: Gilbert Luna M.D. 10/23/2019 4:02 PM
[2019-10-23 16:05] LABS: Alkaline Phosphatase 80 U/L (45-117); Bilirubin,Total 0.5 mg/dl (0.2-1); Globulin 3.9 gm/dl (2.5-4.0); Total Protein 7.7 gm/dl (6.4-8.2); Troponin I < 0.015 ng/ml (0-0.045)
[2019-10-23] MEDS ORDERED: IOVERSOL 100ml IV PRN (16:10)
--- NOTE | 2019-10-23 16:47 | CT Scan Report ---
CT SCAN OF THE ABDOMEN AND PELVIS WITH IV CONTRAST CLINICAL HISTORY: Right-sided abdominal pain. COMPARISON STUDY: Multiple prior abdominal CT scans, most recently dated 10/14/2019. TECHNIQUE: Following the IV administration of 92 cc of Optiray 320, CT scan of the abdomen and pelvi s is performed from the lung bases to the proximal femora. Images are reviewed in the axial, sagittal , and coronal planes. IV contrast was administered without complication. A dose lowering technique wa s utilized adhering to the principles of ALARA. CT DOSE: 1361.77 mGy.cm FINDINGS: Lung bases: The heart is normal in size and without pericardial effusion. The lung bases are clear. T here is a small hiatal hernia. Liver: The contrast-enhanced liver is normal in size, contour, and attenuation. There is minimal cent ral intrahepatic biliary ductal dilatation. The hepatic veins and portal veins are patent. Gallbladder: Surgically absent. Spleen: Normal in size and attenuation. Pancreas: Unremarkable. Adrenal glands: Unremarkable. Kidneys: The contrast enhanced kidneys are normal in size. There are bilateral extrarenal pelvises wi th mild fullness of the collecting system bilaterally. The kidneys enhance symmetrically. Subcentimet er cortical hypodensities likely represent cysts but are too small for definitive characterization. T here is a punctate nonobstructing left renal calculus. Abdominal vasculature: The abdominal aorta is normal in course and caliber. Bowel: There is mild colonic diverticulosis without CT evidence of acute diverticulitis. No bowel obs truction is seen. The appendix is well-visualized and normal. Peritoneum: There is no intraperitoneal free air or abdominal ascites. There is a fat-containing umbi lical hernia. Lymphadenopathy: None. Pelvic viscera: The bladder is normal as visualized. The uterus is surgically absent. No adnexal lesi on is seen. Skeletal structures: No lytic or blastic lesions are seen. IMPRESSION: 1. There are no acute infectious or inflammatory findings in the abdomen or pelvis and there has been no significant change from 10/14/2019. 2. Punctate nonobstructing left renal calculus. 3. Mild colonic diverticulosis without CT evidence of acute diverticulitis. ACT 112: Negative or not required by law. Electronically signed by: Joey Floyd M.D. 10/23/2019 4:45 PM
--- NOTE | 2019-10-23 17:48 | Electrocardiogram Report ---
Test Reason : Blood Pressure : / mmHG Vent. Rate : 069 BPM Atrial Rate : 069 BPM P-R Int : 162 ms QRS Dur : 090 ms QT Int : 394 ms P-R-T Axes : 044 015 001 degrees QTc Int : 422 ms Normal sinus rhythm with sinus arrhythmia Minimal voltage criteria for LVH, may be normal variant Septal infarct , age undetermined Abnormal ECG When compared with ECG of 21-OCT-2019 21:04, Septal infarct is now Present Confirmed by Ismael Gonzalez ([id number]) on 10/23/2019 5:48:16 PM Referred By: Janet Horan Confirmed By:Mitul Gonzalez
[2019-10-23] MEDS ORDERED: GI COCKTAIL ED USE PO ONE (18:04)
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
[2019-10-23] MEDS ORDERED: PROMETHAZINE HCL 25 MG TAB PO PRN (19:49)
[2019-10-23] MEDS ORDERED: POLYETHYLENE (MIRALAX) 17 GM PACK PO PRN (19:49)
[2019-10-23] MEDS ORDERED: RIZATRIPTAN BENZOATE MLT 10 MG TAB PO PRN (19:49)
[2019-10-23] MEDS ORDERED: ONDANSETRON INJ 2 MG/ML 2 ML VIAL IV PRN (19:49)
[2019-10-23] MEDS ORDERED: OXYCODONE HCL IR 5 MG TAB (IMMEDIATE RELEASE) PO PRN (19:49)
[2019-10-23] MEDS ORDERED: MAGNESIUM HYDROXIDE SUSP 30 ML UDC PO PRN (19:49)
[2019-10-23] MEDS ORDERED: ALUMINUM/MAGNESIUM SUSP 30 ML UDC PO PRN (19:49)
[2019-10-23] MEDS ORDERED: LORazepam 1 MG TAB PO PRN (19:49)
--- NOTE | 2019-10-23 19:52 | Billing Data ---
Date of Service October 23, 2019 Coding Level of Care Code 17760 OBS Care - Level 3
[2019-10-23] MEDS: DULOXETINE HCL 60 MG CAP PO SCH (20:41)
[2019-10-23] MEDS: TOPIRAMATE 100 MG TAB PO SCH (20:41)
[2019-10-23] MEDS: FAMOTIDINE 10 MG TABLET PO SCH (20:41)
[2019-10-23] MEDS: lisinopriL 10 MG TAB PO SCH (20:41)
[2019-10-23] MEDS: ACETAMINOPHEN 325 MG TAB PO PRN (20:41)
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
[2019-10-24] MEDS ORDERED: METOCLOPRAMIDE HCL INJ 5 MG/ML 2 ML VIAL IV PRN (00:20)
[2019-10-24] MEDS ORDERED: DiphenhydrAMINE HCL 50 MG/ML VIAL IV PRN (00:20)
[2019-10-24 06:27] LABS: Basophils # (auto) 0.04 K/uL (0-0.2); Basophils % (auto) 0.8 %; Eosinophils # (auto) 0.05 K/uL (0-0.5); Hematocrit (blood only) 37.2 % (37-47); Hemoglobin 12.1 g/dL (12.0-16.0); Immature Granulocytes # (auto) 0.01 K/uL (0.00-0.02); Immature Granulocytes % (auto) 0.2 %; Lymphocytes # (auto) 1.85 K/uL (1.2-3.4); Lymphocytes % (auto) 36.2 %; Mean Corpuscular Hemoglobin 28.5 pg (25-34); Mean Corpuscular Hgb Conc 32.5 g/dL (32-36); Mean Corpuscular Volume 87.7 fL (80-100); Mean Platelet Volume 10.8 fL (7.4-10.4); Monocytes # (auto) 0.45 K/uL (0.11-0.59); Monocytes % (auto) 8.8 %; Neutrophils # (auto) 2.71 K/uL (1.4-6.5); Platelet Count 255 K/uL (130-400); RDW Coefficient of Variation 14.4 % (11.5-14.5); RDW Standard Deviation 45.8 fL (36.4-46.3); Red Blood Count 4.24 M/uL (4.2-5.4); White Blood Count 5.11 K/uL (4.8-10.8)
[2019-10-24 06:59] LABS: Albumin Level 3.2 gm/dl (3.4-5.0); BUN Creatinine Ratio 18.5 (10-20); Calcium 8.7 mg/dl (8.5-10.1); Creatinine Clr Calc Pharmacy 116.2 ml/min; Est GFR (African American) 116.4; Est GFR (Non-African American) 100.4; Potassium 3.7 mmol/L (3.5-5.1)
[2019-10-24 07:02] LABS: Albumin Globulin Ratio 0.9 (0.9-2); Bilirubin,Total 0.4 mg/dl (0.2-1); Globulin 3.4 gm/dl (2.5-4.0); Total Protein 6.6 gm/dl (6.4-8.2)
[2019-10-24] MEDS: FAMOTIDINE 10 MG TABLET PO SCH ×2 (08:32→20:51)
[2019-10-24] MEDS: TOPIRAMATE 100 MG TAB PO SCH ×2 (08:32→20:22)
--- NOTE | 2019-10-24 09:26 | XCELERA ---
[id number] [id number]
[2019-10-24] MEDS: ACETAMINOPHEN 325 MG TAB PO PRN (15:23)
[2019-10-24] MEDS ORDERED: PANTOprazole 40 MG TAB PO ONE (17:00)
[2019-10-24] MEDS: DULOXETINE HCL 60 MG CAP PO SCH (20:21)
[2019-10-24] MEDS: lisinopriL 10 MG TAB PO SCH (20:22)
--- NOTE | 2019-10-24 22:57 | Hospitalist Progress Note ---
Date of Service October 24, 2019 Assessment & Plan (1) Atypical chest pain: Di Peres is a 44y/o F with PMH of autoimmune thyroiditis, depression, and GERD; with persistent substernal chest/abdominal pain that radiates to the back that has lasted the last 10 days without improvement Atypical chest pain/abdominal pain: - persistent abdominal pain with associated nausea over the last 10 days; has had a decrease in oral intake 2/2 epigastric pain - pain sounds more like gastritis vs doudenitis. -ischemic bowel seems unlikely given pain pattern - ESR & CRP negative - troponin negative x3 - EKG on 10/23 compared to 10/21 demonstrating concern for septal infarct - TTE ordered -will consult GI Diarrhea: - no concern for infectious etiology at this point - improving stools with increase in formed stools - continue to monitor Nausea: - zofran PRN Diet: gluten free Code status: Full (2) Abdominal pain: (3) Diarrhea: (4) Nausea: Subjective Patient reports that she continues to have abdominal pain. It began about 3 weeks ago. It is located in the epigastric region and moves to the RUQ. Pain worsens immediately when she eats. Pain has not worsened. Review of Systems Review of Systems: All systems reviewed & are unremarkable except as noted in HPI & below Physical Exam Physical Exam: Constitutional: WD/WN, vitals as above Eyes: PERRL, conjunctivae normal, anicteric sclerae ENMT: external ear and nose normal, oropharynx normal Respiratory: normal respiratory effort, lungs clear to auscultation Cardiovascular: Rate/Rhythm: regular rate and regular rhythm Heart Sounds: + abnormal S1, + abnormal S2, no gallop, no murmur and no cardiac rub Vessels: normal peripheral pulses; no JVD Gastrointestinal (Abdomen): Inspection/Auscultation: normal bowel sounds Percussion/Palpation: + abdomen tender (right quadrants), no guarding and abdomen soft; abdomen not rigid, no hepatosplenomegaly, no hernia and no abdominal mass Skin: no rashes, warm and dry Results & Data ([facility]) Vital Signs (Past 12 Hours) Vital Signs Temp Pulse Pulse Pulse Resp BP BP 10/24/19 20:00 36.7 C 49 L 16 100/63 10/24/19 15:44 36.8 C 61 18 118/78 10/24/19 15:09 59 L 10/24/19 11:38 36.7 C 67 16 92/59 L Pulse Ox 10/24/19 20:00 96 10/24/19 15:44 92 10/24/19 15:09 10/24/19 11:38 96 PG Care Time/CCT Total # of Minutes Spent Total Time Spent with Patient: Total time spent is greater than 50% in coordination of care (as documented) at patient's floor/unit and/or counseling patient: Coding Level of Care Code 60371 Subseq Hosp Care Lvl 3 Diagnoses Atypical chest pain R07.89 Abdominal pain R10.31 Abdominal location: right lower quadrant Diarrhea R19.7 Diarrhea type: unspecified type Nausea R11.0 Time Spent (min) 35 (1) Diarrhea Diarrhea type: unspecified type Qualified Code(s): R19.7 - Diarrhea, unspecified (2) Abdominal pain Abdominal location: right lower quadrant Qualified Code(s): R10.31 - Right lower quadrant pain
[2019-10-25] MEDS: TOPIRAMATE 100 MG TAB PO SCH (08:43)
[2019-10-25] MEDS: FAMOTIDINE 10 MG TABLET PO SCH (08:43)
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
--- NOTE | 2019-10-30 13:39 | Discharge Summary ---
Date of Service October 25, 2019 Admission HPI Per Admitting Provider Di Peres is a 44y/o F with PMH significant for autoimmune thyroiditis, depression, and GERD; presented to PCP today following continued worsening of epigastric/substernal pain; problems started on 10/12 with persistent diarrhea, nausea, vomiting, and right subcostal chest pain; patient was seen and evaluated in ED with negative CT scan of abdomen and pelvis at that time. Pt returned to PCP on 10/21 with continued right subcostal/epigastric pain that had persisted despite improvement in her bowel movements, in the interim had decrease oral intake as this was provided relief of the nausea and vomiting; switched to eating crackers every couple of days. Today returned to PCP with worsening epigastric/substernal pain that had persisted despite an increase in the amount of NSAIDs she was taking "took as much as the bottle said I could take"; this medication was consistently taken throughout this time and was taken with "sips of water to keep it down, but no food" Principal Diagnosis atypical chest pain Discharge Exam Constitutional: WD/WN, vitals as above Eyes: PERRL, conjunctivae normal, anicteric sclerae ENMT: external ear and nose normal, oropharynx normal Respiratory: normal respiratory effort, lungs clear to auscultation Cardiovascular: Rate/Rhythm: regular rate and regular rhythm Heart Sounds: + abnormal S1, + abnormal S2, no gallop, no murmur and no cardiac rub Vessels: normal peripheral pulses; no JVD Gastrointestinal (Abdomen): Inspection/Auscultation: normal bowel sounds Percussion/Palpation: + abdomen less tender, no guarding and abdomen soft; abdomen not rigid, no hepatosplenomegaly, no hernia and no abdominal mass Skin: no rashes, warm and dry Discharge Data Allergies Allergy/AdvReac Type Severity Reaction Status Date / Time gluten AdvReac Intermediate Abdominal Verified 10/23/19 15:14 Pain Consultations 10/23/19 17:00 ED Decision to Admit Stat 10/24/19 16:15 Consult Gastroenterology Routine Ordered Studies 10/23/19 15:00 CT abd pelvis IV con only Stat Hospital Course (1) Atypical chest pain: Di Peres is a 44y/o F with PMH of autoimmune thyroiditis, depression, and GERD; with persistent substernal chest/abdominal pain that radiates to the back that has lasted the last 10 days without improvement Atypical chest pain/abdominal pain: - persistent abdominal pain with associated nausea over the last 10 days; has had a decrease in oral intake 2/2 epigastric pain - pain sounds more like gastritis vs doudenitis. -ischemic bowel seems unlikely given pain pattern - ESR & CRP negative - troponin negative x3 - EKG on 10/23 compared to 10/21 demonstrating concern for septal infarct - However, TTE ordered: which was negative on second review by reading assistant. May consider rechecking her Echo in 3-6 months to reassess Right ventricle. Her troponins were also negative. In short, septal infarct seems unlikely given normal Echo and normal troponins. Her pain may be secondary to IBS. Will recommend followup with GI as outpatient. Diarrhea: - no concern for infectious etiology at this point - improving stools with increase in formed stools - continue to monitor as outpatient. Nausea: - zofran PRN Diet: gluten free Code status: Full (2) Abdominal pain: (3) Diarrhea: (4) Nausea: Total Time Total Time Spent Total Time Spent (In Minutes): 32 Discharge Plan Discharge Items Patient Disposition: Home - Self-Care Reason For Visit: PERSISTENT ATYPICAL CHEST PAIN Discharge Diagnosis: Abdominal pain/ chest pain non cardiac. Activity: Resume your previous activity Non-emergency contact: Primary Care Provider Call non-emergency contact if: you have any medication questions Follow-up/Referrals: Janet Horan CRNP [Primary Care Provider] - Diet: Gluten Free Addtl Attending Provider Instructions: You have been hospitalized for an acute medical problem: abdominal pain. During your stay at [facility], we have made an effort to correct the problem that brought you to the hospital while keeping you as comfortable as possible. Medications were used to bring your condition under control and your discharge instructions will include directions for any medications you should take after leaving the hospital. Please make sure you see your Primary Care Provider as part of your follow up plan. Will recommend GI followup within one month. will send a discharge summary to your primary care doctor. Pending Studies at Discharge: No Stand-Alone Forms: Call Back Authorization, [facility], Work/School Release (Inpt), Smoking Cessation Medications and DC Order Prescriptions: Continued rizatriptan [Maxalt-RETAIL ANALYTICS MANAGER] 10 mg tablet,disintegrating 10 mg PO .ONCE PRN (Reason: migraines) RF: 0 lorazepam [Ativan] 1 mg tablet 1 mg PO HS PRN (Reason: severe anxiety) RF: 0 topiramate 100 mg tablet 100 mg PO BID RF: 0 famotidine [Pepcid AC] 10 mg tablet 10 mg PO BID Qty: 60 RF: 0 oxycodone [Roxicodone] 5 mg tablet 5 mg PO Q6H PRN (Reason: pain) Qty: 12 RF: 0 lisinopril 10 mg tablet 10 mg PO QPM RF: 0 promethazine 25 mg tablet 25 mg PO Q6H PRN (Reason: Nausea) RF: 0 sumatriptan succinate [Imitrex] 6 mg/0.5 mL Solution 6 mg subcut DIRECTED PRN (Reason: Migraine Headache) RF: 0 duloxetine 60 mg Capsule,Delayed Release(Dr/Ec) 60 mg PO QPM RF: 0 Excedrin Migraine 250-250-65 mg Tablet 1 tab PO Q6H PRN (Reason: Migraine Headache) RF: 0 Discharge Orders: Discharge Order (Routine); Ordered 10/25/19 Ordered By: Brandon Barragan Admission Data Admit Date/Time: 10/24/19 23:24 Attending Provider: Brandon Barragan Admit Provider: Jose Cason Primary Care Provider: Janet Horan Other Providers: Chikis Reddy ; Keenan Moses Other Interventions: Discharge Summary Assessment (RN) Last Done: 10/25/19 15:13 DC Date/Time DO NOT enter until pt leaves facility: 10/25/19 15:51 Coding Level of Care Code D/C Day Management >30 mins Diagnoses Atypical chest pain R07.89 Abdominal pain R10.31 Abdominal location: right lower quadrant Diarrhea R19.7 Diarrhea type: unspecified type Nausea R11.0 Time Spent (min) 32
== END 2019-10-25 15:51 | disposition home or self-care (01) | DRG 392 ==
LOC: ED 14:43 → 2W 14:43 → SUATTDRO 18:31 → 2W 19:08 → 2N 10-24 11:04

== ENCOUNTER 2025-07-27 12:48 | Observation (INO) ==
--- NOTE | 2025-07-27 13:21 | XRay Report ---
XR chest 1V portable CLINICAL HISTORY: Chest pain, nonspecific COMPARISON STUDY: 06/22/2025 FINDINGS: Heart size and pulmonary vasculature are normal. No consolidation or pleural effusion. No p neumothorax. IMPRESSION: No acute findings. ACT 112: Negative or not required by law. Electronically signed by: Ab Beatty M.D. 07/27/2025 1:19 PM
[2025-07-27 13:49] LABS: Alanine Aminotransferase 19.0 U/L (7-52); Albumin Globulin Ratio 1.2 (0.9-2); Albumin Level 4.3 gm/dl (3.4-5.0); Alkaline Phosphatase 85.0 U/L (34-104); Anion Gap 8.0 (3-11); Bilirubin,Total 0.4 mg/dl (0.2-1.0); Blood Urea Nitrogen 14.0 mg/dl (6-23); Calcium 9.9 mg/dl (8.6-10.3); Carbon Dioxide 28.0 mmol/L (21-32); Chloride 104.0 mmol/L (98-107); Creatinine Clr Calc Pharmacy 109.0 ml/min; Globulin 3.5 gm/dl (2.5-4.0); Glucose 94.0 mg/dl (70-99(Fasting)); Potassium 3.7 mmol/L (3.5-5.1); Sodium 140.0 mmol/L (136-145); Total Protein 7.8 gm/dl (6.0-8.3)
--- NOTE | 2025-07-27 13:51 | Electrocardiogram Report ---
Test Reason : Blood Pressure : */* mmHG Vent. Rate : 66 BPM Atrial Rate : 66 BPM P-R Int : 154 ms QRS Dur : 88 ms QT Int : 420 ms P-R-T Axes : 78 57 50 degrees QTcB Int : 440 ms Normal sinus rhythm Normal ECG When compared with ECG of 15-Jul-2025 11:15, No significant change was found Confirmed by Kev Siddiqi ([id number]) on 07/27/2025 1:50:38 PM Referred By: Confirmed By: Kev Siddiqi
[2025-07-27 13:52] LABS: Hematocrit (blood only) 27.9 % (37.0-47.0); Hemoglobin 8.6 g/dl (12.0-16.0); Immature Granulocytes # (auto) 0.01 K/uL (0.01-0.20); Immature Granulocytes % (auto) 0.2 %; Mean Corpuscular Hemoglobin 24.7 pg (25.0-34.0); Mean Corpuscular Volume 80.2 fL (80.0-100.0); Platelet Count 260 K/uL (130-400); RDW Standard Deviation 42.5 fL (36.4-46.3); Red Blood Count 3.48 M/uL (4.20-5.40); White Blood Count 4.38 K/ul (4.8-10.8)
[2025-07-27 13:56] LABS: INR 1.0 (0.9-1.1); Partial Thromboplastin Time 24 Seconds (21-31); Prothrombin Time 10.3 Seconds (9.0-12.0)
--- NOTE | 2025-07-27 14:16 | Emergency Department Note ---
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 by law. Electronically signed by: Ab Beatty M.D. 07/27/2025 1:[address] 07/27/25 14:08 CT SCAN OF THE BRAIN WITHOUT IV CONTRAST CLINICAL HISTORY: Syncope COMPARISON STUDY: CT of the brain dated 06/25/2025. TECHNIQUE: Unenhanced CT scan of the brain is performed from the vertex to the skull base. Images are reviewed in the axial, sagittal, and coronal planes. A dose lowering technique was utilized adhering to the principles of ALARA. CT DOSE: 547.75 mGy.cm FINDINGS: Brain parenchyma: A small focus of right frontal encephalomalacia is consistent with a remote insult. There is no hemorrhage, mass effect, or evidence of acute territorial ischemia by CT criteria. Jj-white matter differentiation is preserved. No extra-axial fluid collection is seen. Ventricles, sulci, cisterns: Normal in configuration. Intracranial vasculature: There is atherosclerotic calcification of the cavernous carotid arteries. Calvarium: Unremarkable. Sinuses and mastoids: There is mild mucosal thickening right maxillary antrum. Trace mucosal thickening is noted in the ethmoid sinuses. The mastoid air cells are well pneumatized. Orbits: The bony orbits are grossly intact. IMPRESSION: No acute intracranial abnormality. ACT 112: Negative or not required by law. Electronically signed by: Joey Floyd M.D. 07/27/2025 2:49 PM MDM Narrative See ED course. Impression & Plan Syncope, Symptomatic anemia, Dizziness Discharge Plan Visit Data Chief Complaint: Syncope Stated Complaint: CODE PURPLE ED Provider: Delmar Marino ED Midlevel Provider: Akanksha Martins Discharge Problem: Syncope, Symptomatic anemia, Dizziness Patient Disposition: Being Evaluated by Hospitalist Condition: Fair Discharge Instructions Interventions: ED Discharge Assessment Last Done: 07/27/25 19:16
[2025-07-27 14:33] LABS: Appearance Urine Clear (Clear); Bacteria Urine Automated None Seen (None Seen); Cast Urine Automated 0-2 /lpf (0-2); Epithelial Cell Urine Auto 0-2 /hpf (0-2); Glucose Urine UA Negative (Negative); RBC Urine Automated 0-2 /hpf (0-2); WBC Urine Automated 0-5 /hpf (0-5)
[2025-07-27 14:34] LABS: Magnesium 2.0 mg/dl (1.7-2.4)
[2025-07-27 14:46] LABS: Pregnancy Test, Serum Negative (Negative)
--- NOTE | 2025-07-27 14:51 | CT Scan Report ---
CT SCAN OF THE BRAIN WITHOUT IV CONTRAST CLINICAL HISTORY: Syncope COMPARISON STUDY: CT of the brain dated 06/25/2025. TECHNIQUE: Unenhanced CT scan of the brain is performed from the vertex to the skull base. Images are reviewed in the axial, sagittal, and coronal planes. A dose lowering technique was utilized adherin g to the principles of ALARA. CT DOSE: 547.75 mGy.cm FINDINGS: Brain parenchyma: A small focus of right frontal encephalomalacia is consistent with a remote insult. There is no hemorrhage, mass effect, or evidence of acute territorial ischemia by CT criteria. Jj- white matter differentiation is preserved. No extra-axial fluid collection is seen. Ventricles, sulci, cisterns: Normal in configuration. Intracranial vasculature: There is atherosclerotic calcification of the cavernous carotid arteries. Calvarium: Unremarkable. Sinuses and mastoids: There is mild mucosal thickening right maxillary antrum. Trace mucosal thickeni ng is noted in the ethmoid sinuses. The mastoid air cells are well pneumatized. Orbits: The bony orbits are grossly intact. IMPRESSION: No acute intracranial abnormality. ACT 112: Negative or not required by law. Electronically signed by: Joey Floyd M.D. 07/27/2025 2:49 PM
[2025-07-27] MEDS: SODIUM CHLORIDE 0.9% 1,000 ML IV SCH (15:34)
[2025-07-27] MEDS: ACETAMINOPHEN 1,000 MG/100 ML VIAL IV STA (15:34)
[2025-07-27] MEDS: ONDANSETRON INJ 2 MG/ML 2 ML VIAL IV STA (15:34)
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
[2025-07-27] MEDS: MECLIZINE HCL 25 MG TAB PO STA (16:42)
[2025-07-27 16:56] LABS: Iron 18.0 mcg/dl (35-150); Total Iron Binding Cap Calc 469.0 mcg/dl (250-450); Transferrin 335.0 mg/dl (200-360); Transferrin (FE) Percent Satur 4.0 % (15-50)
[2025-07-27 17:12] LABS: Thyroid Stimulating Hormone 2.06 uIu/ml (0.300-4.500)
[2025-07-27 17:17] LABS: Ferritin 3.0 ng/ml (8-388)
[2025-07-27 17:33] LABS: Folate (Folic Acid),Ser orPlas 19.02 ng/ml (>5.38)
[2025-07-27 17:35] LABS: Vitamin B12 143.0 pg/ml (180-914)
[2025-07-27] MEDS: IRON SUCROSE 300 MG in SODIUM CHLORIDE 0.9% 250 ML IV SCH (17:50)
[2025-07-27] MEDS: LORazepam 1 MG TAB PO STA ×2 (18:04→18:49)
[2025-07-27 18:09] LABS: Chlamydia pneumoniae PCR Not Detected (NotDetected); Coronavirus 229E PCR Not Detected (NotDetected); Coronavirus CoV-2 (COVID19)PCR Not Detected (NotDetected); Coronavirus HKU1 PCR Not Detected (NotDetected); Coronavirus NL63 PCR Not Detected (NotDetected); Coronavirus OC43PCR Not Detected (NotDetected); Human Metapneumovirus PCR Not Detected (NotDetected); Parainfluenza Virus 1 PCR Not Detected (NotDetected); Parainfluenza Virus 2 PCR Not Detected (NotDetected); Parainfluenza Virus 3 PCR Not Detected (NotDetected); Parainfluenza Virus 4 PCR Not Detected (NotDetected); Respiratory Syncytial VirusPCR Not Detected (NotDetected); Rhinovirus/Enterovirus PCR Not Detected (NotDetected)
[2025-07-27] MEDS: D5W AND LACTATED RINGERS 1,000 ML IV SCH (18:38)
[2025-07-27] MEDS: METOCLOPRAMIDE HCL INJ 5 MG/ML 2 ML VIAL IV ONE (18:43)
[2025-07-27] MEDS ORDERED: MELATONIN 3 MG TAB PO PRN (19:17)
[2025-07-27] MEDS ORDERED: ALBUTEROL HFA 8 GM INHALER INH PRN (19:17)
[2025-07-27] MEDS ORDERED: MECLIZINE HCL 25 MG TAB PO PRN (19:19)
[2025-07-27] MEDS: HYDROCODONE/ACETAMOPHEN 5/325MG TAB PO PRN (19:51)
[2025-07-27] MEDS: PROCHLORPERAZINE 10 MG in SYRINGE 8 ML IV ONE (20:33)
[2025-07-27] MEDS: HYDROmorphone INJ 1 MG/ML SYRINGE IV STA (21:10)
[2025-07-27] MEDS: GADOBUTROL 65ML VIAL IV ONE (22:04)
[2025-07-27] MEDS: PREGABALIN 100 MG CAP PO SCH (22:33)
[2025-07-27] MEDS: MULTIVITAMIN TAB PO SCH (22:34)
[2025-07-27] MEDS: ESCITALOPRAM OXALATE 10 MG TAB PO SCH (22:34)
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
[2025-07-28] MEDS: LEVOTHYROXINE SODIUM 50 MCG TABLET PO SCH (06:29)
[2025-07-28 07:20] LABS: Hematocrit (blood only) 21.2 % (37.0-47.0); Hemoglobin 6.7 g/dl (12.0-16.0); Mean Corpuscular Hemoglobin 25.3 pg (25.0-34.0); Mean Corpuscular Volume 80.0 fL (80.0-100.0); Platelet Count 184 K/uL (130-400); RDW Standard Deviation 42.9 fL (36.4-46.3); Red Blood Count 2.65 M/uL (4.20-5.40); White Blood Count 5.39 K/ul (4.8-10.8)
[2025-07-28 07:32] LABS: Anion Gap 5.0 (3-11); Blood Urea Nitrogen 12.0 mg/dl (6-23); Calcium 8.8 mg/dl (8.6-10.3); Carbon Dioxide 28.0 mmol/L (21-32); Chloride 109.0 mmol/L (98-107); Creatinine Clr Calc Pharmacy 91.4 ml/min; Glucose 122.0 mg/dl (70-99(Fasting)); Potassium 3.9 mmol/L (3.5-5.1); Sodium 142.0 mmol/L (136-145)
[2025-07-28] MEDS ORDERED: SODIUM CHLORIDE 0.9% 100 ML IV PRN ×2 (07:41→14:50)
[2025-07-28] MEDS: LACTATED RINGER'S 1,000 ML IV ONE (07:45)
[2025-07-28] MEDS ORDERED: PANTOPRAZOLE BOLUS/DRIP IV STA (07:57)
[2025-07-28] MEDS: ENOXAPARIN INJ 40 MG/0.4 ML SYR SQ SCH (07:59)
[2025-07-28] MEDS: PANTOprazole 40 MG in DEXTROSE 5% MINI-B 100 ML IV SCH (09:09)
[2025-07-28] MEDS: ACETAMINOPHEN 500 MG TAB PO PRN (09:21)
[2025-07-28] MEDS: FLUDROCORTISONE ACETATE 0.1 MG TAB PO SCH (10:47)
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
[2025-07-28 12:37] LABS: Hematocrit (blood only) 21.7 % (37.0-47.0); Hemoglobin 7.1 g/dl (12.0-16.0)
[2025-07-28 18:22] LABS: Hematocrit (blood only) 25.5 % (37.0-47.0); Hemoglobin 8.2 g/dl (12.0-16.0)
[2025-07-28] MEDS: LORazepam 1 MG TAB PO PRN (20:54)
--- NOTE | 2025-07-28 21:56 | Hospitalist Progress Note ---
"Date of Service July 28, 2025 Assessment & Plan (1) Syncope: (2) Orthostatic hypotension: (3) Symptomatic anemia: (4) Recurrent epistaxis: Plan Di is a 49F with a past medical history of history of C. difficile, Janki, hypercalcemia, HLD, hx of gastric bypass 05/2021, hx of DVT, and orthostatic hypotension who presents to the ER with recurrent syncope and symptomatic anemia. #Syncope | dehydration | orthostatic hypotension - Clinical picture more clear, likely anemisa. Now concern for anastomotic leak as patient had Gastric bypass in the past. Was not hypoglycemic, not on diabetic medi. Patient reports multiple heart monitors that have never been revealing. EKG with SR, no signs of ischemia. Continue D5LR Check Biofire Check orthostatic signs qshift Check brain MRI continue fludrocortisone #Anemia | Recurrent Nose bleeds - follows ENT for nose bleeds. suspect from acute blood loss, Has outpatient bleeding disorder labs pending. Consult GI. Obtained blood consent, order transfusion. Ordered IVF bolus, Would benefit from humidifier at home #Mental Health - continue lexapro lyrica Dispo: admit to PCU DVT proh: lovenox Admission and Anticipated Discharge Date Admission Date: July 27, 2025 Subjective 49 yo female reports no new symptoms. Was called by nursing as her blood pressure was low with systolic in the 70s. Hemoglobin was low below 7. Patient denies any BM. Review of Systems Review of Systems: All systems reviewed & are unremarkable except as noted in HPI & below Physical Exam Constitutional: WD/WN, vitals as above Eyes: PERRL, conjunctivae normal, anicteric sclerae ENMT: external ear and nose normal, oropharynx normal Neck: trachea midline, no thyromegaly Respiratory: normal respiratory effort, lungs clear to auscultation Cardiovascular: RRR, no murmur, no edema Gastrointestinal (Abdomen): normal bowel sounds, soft, nontender, no hepatosplenomegaly Musculoskeletal: no cyanosis or clubbing, extremities motor strength 5/5 Skin: no rashes, warm and dry Neurologic: PERRL, EOMI, accommodation nl, no face palsy, no dysarthria Psychiatric: A+Ox3, euthymic affect Lymphatic: no cervical or axillary lymphadenopathy Results & Data Results & Data Vital Signs (Past 12 Hours) Vital Signs Temp Pulse Pulse Resp BP BP Pulse Ox 07/28/25 19:27 37.2 C 60 18 103/68 98 07/28/25 16:58 36.7 C 65 18 109/69 97 07/28/25 16:55 36.7 C 65 18 109/69 97 07/28/25 16:09 36.7 C 67 18 99/65 L 96 07/28/25 15:39 36.8 C 76 18 101/66 97 07/28/25 15:24 36.8 C 70 18 96/61 L 96 07/28/25 15:08 36.8 C 72 18 96/60 L 95 07/28/25 14:00 97 H 07/28/25 11:06 91/58 L 07/28/25 11:04 36.8 C 63 18 85/52 L 97 07/28/25 11:01 36.8 C 63 16 85/52 L 97 07/28/25 10:01 36.8 C 69 14 91/58 L 97 O2 Del Method O2 Flow Rate 07/28/25 19:27 Room Air 07/28/25 16:58 0 07/28/25 16:55 0 07/28/25 16:09 0 07/28/25 15:39 07/28/25 15:24 0 07/28/25 15:08 0 07/28/25 14:00 07/28/25 11:06 07/28/25 11:04 0 07/28/25 11:01 0 07/28/25 10:01 PG Care Time/CCT Total # of Minutes Spent Total Time Spent with Patient: Total time spent is greater than 50% in coordination of care (as documented) at patient's floor/unit and/or counseling patient: Critical Care Time: Yes Total Critical Care Time: 31 Plan is as discussed above. Please refer to orders for further planning. 31 minutes of critical care time spent in the management clinical coronation care of this patient today this critical care time spent independent of and in addition to any other time or critical care time any other practitioner today's date. Coding Level of Care Code 38881 SUB INP/OBS CARE 3/50MIN (25 - SIGNIFICANT, SEPARATELY IDENTIFIABLE ) Diagnoses Syncope R55 Orthostatic hypotension I95.1 Symptomatic anemia D64.9 Recurrent epistaxis R04.0 Additional Codes Critical Care Time - Critical Care Time: Yes ([id number]) Time Spent (min) 60"
[2025-07-29 06:47] LABS: Hematocrit (blood only) 25.2 % (37.0-47.0); Hemoglobin 8.2 g/dl (12.0-16.0); Mean Corpuscular Hemoglobin 26.8 pg (25.0-34.0); Mean Corpuscular Volume 82.4 fL (80.0-100.0); Platelet Count 150 K/uL (130-400); RDW Standard Deviation 44.0 fL (36.4-46.3); Red Blood Count 3.06 M/uL (4.20-5.40); White Blood Count 3.41 K/ul (4.8-10.8)
[2025-07-29 07:18] LABS: INR 1.1 (0.9-1.1); Partial Thromboplastin Time 30 Seconds (21-31); Prothrombin Time 11.1 Seconds (9.0-12.0)
[2025-07-29 07:30] LABS: Anion Gap 5.0 (3-11); Blood Urea Nitrogen 8.0 mg/dl (6-23); Calcium 8.5 mg/dl (8.6-10.3); Carbon Dioxide 28.0 mmol/L (21-32); Chloride 110.0 mmol/L (98-107); Creatinine Clr Calc Pharmacy 120.1 ml/min; Glucose 95.0 mg/dl (70-99(Fasting)); Potassium 3.7 mmol/L (3.5-5.1); Sodium 143.0 mmol/L (136-145)
--- NOTE | 2025-07-29 09:08 | History & Physical Bridge Note ---
Date of Service July 29, 2025 History & Physical Bridge Note I have examined the patient, reviewed the History & Physical and in the interval since the performance of the History & Physical I have noted the following changes of clinical significance: no changes noted. hgb stable at 8.2. one small nose bleed last evening. no chest pain or sob. - will plan for EGD to assess for upper GI cause for anemia. Supervising Physician Co-Signing Physician Notes I saw and examined this patient with our nurse practitioner and agree with her assessment and plan. Resolving epistaxis. Proceed with endoscopy to rule out upper GI cause for melena.
[2025-07-29] MEDS: CYANOCOBALAMIN 1000 MCG/ML VIAL IM SCH (09:46)
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
[2025-07-29] MEDS ORDERED: ATROPINE SULFATE 0.1 MG/ML 10ML SYR IV PRN (11:18)
[2025-07-29] MEDS: SODIUM CHLORIDE 0.9% 500 ML IV SCH (11:38)
--- NOTE | 2025-07-29 12:06 | GI REPORT ---
[facility] Patient: SARAH RIOS : 1975 Sex at : Female Age: 49 Years Procedure: Upper GI endoscopy Date: 07/29/2025 Attending Physician: Jacob Rodriguez MD Referring MD: Lacho Osorio Indications: - Suspected upper gastrointestinal bleeding Medications: - Monitored Anesthesia Care Complications: - No immediate complications. Procedure: - Prior to the procedure, a History and Physical was performed, and patient medications and allergies were reviewed. The patient's tolerance of previous anesthesia was also reviewed. The risks and benefits of the procedure and the sedation options and risks were discussed with the patient. All questions were answered, and informed consent was obtained. [Anticoagulant Agents] [Days Prior to Procedure]. [ASA Grade]. After reviewing the risks and benefits, the patient was deemed in satisfactory condition to undergo the procedure. - The egd scope was introduced through the mouth and advanced to the jejunum. - The upper GI endoscopy was accomplished without difficulty. - The patient tolerated the procedure well. Findings: - The examined esophagus was normal. - Evidence of a gastric bypass was found in the gastric body. This was characterized by healthy appearing mucosa. - The examined jejunum was normal. Impression: - Normal esophagus. - A gastric bypass was found, characterized by healthy appearing mucosa. - Normal examined jejunum. - No specimens collected. Recommendation: - Resume previous diet. - Patient has a contact number available for emergencies. The signs and symptoms of potential delayed complications were discussed with the patient. Return to normal activities tomorrow. Written discharge instructions were provided to the patient. Procedure Code(s): - 99189, Esophagogastroduodenoscopy, flexible, transoral; diagnostic, including collection of specimen(s) by brushing or washing, when performed (separate procedure) Diagnosis Code(s): - Z98.84, Bariatric surgery status CPT(R) - 2022 copyright [employer]. All Rights Reserved. The CPT codes, CCI edits and ICD codes generated are intended as suggestions and were generated based on input data. These codes are preliminary and upon medical oncologist review may be revised to meet current compliance and payer requirements. The provider is responsible for the final determination of appropriate codes, and modifiers. Jacob Rodriguez MD This document has been electronically signed. Note Initiated:07/29/2025 Note Completed:07/29/2025 12:05 PM \\[email or web address]\Provation\Results\[email or web address]\[id number]
--- NOTE | 2025-07-29 12:50 | Anesthesiology Progress Note ---
Date of Service July 29, 2025 Anesthesia Post Procedure Vital Signs Vital Signs: Temp Pulse Pulse Pulse Resp BP BP 07/29/25 12:39 63 14 127/75 07/29/25 12:23 50 L 12 117/72 07/29/25 12:08 62 12 119/67 07/29/25 11:16 36.9 C 58 L 16 118/67 07/29/25 07:50 37.0 C 60 22 119/75 07/29/25 07:44 59 L 07/29/25 02:30 36.5 C 54 L 18 106/61 07/28/25 22:31 36.8 C 68 18 106/60 07/28/25 21:56 68 07/28/25 21:00 07/28/25 19:27 37.2 C 60 18 103/68 07/28/25 16:58 36.7 C 65 18 109/69 07/28/25 16:55 36.7 C 65 18 109/69 07/28/25 16:09 36.7 C 67 18 99/65 L 07/28/25 15:39 36.8 C 76 18 101/66 07/28/25 15:24 36.8 C 70 18 96/61 L 07/28/25 15:08 36.8 C 72 18 96/60 L 07/28/25 14:00 97 H Pulse Ox O2 Del Method O2 Flow Rate 07/29/25 12:39 98 Room Air 07/29/25 12:23 95 Room Air 07/29/25 12:08 92 Room Air 07/29/25 11:16 97 Room Air 07/29/25 07:50 97 Room Air 07/29/25 07:44 07/29/25 02:30 97 Room Air 07/28/25 22:31 97 Room Air 07/28/25 21:56 07/28/25 21:00 Room Air 07/28/25 19:27 98 Room Air 07/28/25 16:58 97 0 07/28/25 16:55 97 0 07/28/25 16:09 96 0 07/28/25 15:39 97 07/28/25 15:24 96 0 07/28/25 15:08 95 0 07/28/25 14:00 Transfer of Care Handoff Completed per policy Notes Mental Status: alert / awake / arousable Patient Amnestic to Procedure: Yes Nausea / Vomiting: adequately controlled Pain: adequately controlled Airway Patency, RR, SpO2: stable & adequate BP & HR: stable & adequate Hydration State: stable & adequate Anesthetic Complications: no major complications apparent
[2025-07-29] MEDS: VITAMIN A 25,000 UNIT CAP PO SCH (13:49)
[2025-07-29] MEDS: LIDOCAINE 2% 2 ML VIAL/AMP(20MG/ML) INFIL ONE ×2 (13:53)
[2025-07-29] MEDS: PROPOFOL IV EMULSION 10 MG/ML 20 ML VIAL IV ONE (13:53)
--- NOTE | 2025-07-29 20:17 | Hospitalist Progress Note ---
"Date of Service July 29, 2025 Assessment & Plan (1) Syncope: (2) Orthostatic hypotension: (3) Symptomatic anemia: (4) Recurrent epistaxis: Plan 49yo female with history of C. 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 #Syncope | dehydration | orthostatic hypotension - -MRI brain neg for acute findings -was started on fludrocortisone by cardiology earlier this fall -suspect orthostasis is mainly due to worsening anemia from her recurrent epistaxis as well as poor PO intake in the setting of such -no further syncope or near-syncope or orthostasis #acute blood loss anemia 2nd to recurrent epistaxis - -had epistaxis last pm and on Sunday -nothing today fortunately -f/u with [facility] shortly after discharge -cont nasal saline -consider bactroban ointment to nose BID to keep nares moist -s/p 2 units PRBCs of blood this admission with stable H/H since then -s/p EGD today without source of chronic Fe loss #NUMEROUS nutritional def - -severe Fe def - cont daily IV venofer -severe B12 def - resume B12 injections daily while here -zinc def - replace -vit A def - replace -B1 level pending -consider vit C supplementation given epistaxis #Mental Health - continue leah santo #hypothyroidism - -TSH 2 -cont synthroid observe overnight can likely d/c tomorrow Admission and Anticipated Discharge Date Admission Date: July 27, 2025 Subjective saw patient post-EGD reported feeling tired/fatigued, but otherwise no further dizziness or lightheadedness or near-syncope did have epistaxis on Sunday multilple times, and 1x last night both self-limited eating better today vs other days recent injury to teeth - improved, able to eat more comfortably denies any abd pain Review of Systems Review of Systems: CV - no cp pulm - no dyspnea GI - no vomiting Physical Exam Physical Exam: gen - NAD, pleasant neck - no JVD mouth - MMM nose - no epistaxis or active bleeding heart - RRR, s1 s2, no murmur lungs - CTA b/l abd - soft NT ND BS+ ext - no edema, pulses 2+ b/l feet Results & Data Results & Data Vital Signs (Past 12 Hours) Vital Signs Temp Pulse Pulse Resp BP Pulse Ox O2 Del Method 07/29/25 19:12 36.9 C 65 18 136/83 96 Room Air 07/29/25 15:49 36.6 C 77 20 124/81 97 Room Air 07/29/25 15:20 36.6 C 79 18 122/80 99 Room Air 07/29/25 14:00 90 07/29/25 13:43 36.5 C 53 L 20 145/94 H 99 Room Air 07/29/25 12:39 63 14 127/75 98 Room Air 07/29/25 12:23 50 L 12 117/72 95 Room Air 07/29/25 12:08 62 12 119/67 92 Room Air 07/29/25 11:16 36.9 C 58 L 16 118/67 97 Room Air Laboratory Results Laboratory Results - last 48 hr 07/28/25 07/28/25 12:08 18:09 WBC RBC Hgb 7.1 L 8.2 L Hct 21.7 L 25.5 L MCV MCH MCHC RDW Std Deviation RDW Coeff of Richy Plt Count MPV PT INR APTT PTT Ratio Sodium Potassium Chloride Carbon Dioxide Anion Gap BUN Creatinine Est Cr Clr Drug Dosing eGFR BUN/Creatinine Ratio Glucose Calcium Blood Type Antibody Screen Crossmatch 07/29/25 06:21 WBC 3.41 L RBC 3.06 L Hgb 8.2 L Hct 25.2 L MCV 82.4 MCH 26.8 MCHC 32.5 RDW Std Deviation 44.0 RDW Coeff of Richy 14.7 H Plt Count 150 MPV 11.5 PT 11.1 INR 1.1 APTT 30 PTT Ratio 1.1 Sodium 143 Potassium 3.7 Chloride 110 H Carbon Dioxide 28 Anion Gap 5 BUN 8 Creatinine 0.57 L Est Cr Clr Drug Dosing 120.1 eGFR 109.96 BUN/Creatinine Ratio 14.0 Glucose 95 Calcium 8.5 L PG Care Time/CCT Total # of Minutes Spent Total Time Spent with Patient: Total time spent is greater than 50% in coordination of care (as documented) at patient's floor/unit and/or counseling patient: Coding Level of Care Code 91770 SUB INP/OBS CARE 2/35MIN Diagnoses Syncope R55 Orthostatic hypotension I95.1 Symptomatic anemia D64.9 Recurrent epistaxis R04.0"
[2025-07-29] MEDS: ONDANSETRON INJ 2 MG/ML 2 ML VIAL IV PRN (21:55)
[2025-07-29 22:22] VITALS: TEMP 97.9
--- NOTE | 2025-07-30 08:00 | Gastroenterology Progress Note ---
Date of Service July 30, 2025 Assessment & Plan (1) Recurrent epistaxis: Plan: Suspect the cause for melena. Endoscopy was unrevealing no signs of upper GI cause for bleeding. Clinically improved no further workup warranted at this time. Patient can follow-up with us as an outpatient. Admission and Anticipated Discharge Date Admission Date: July 27, 2025 Subjective Resting comfortably no further epistaxis no abdominal pain shortness of breath or chest pain Physical Exam Physical Exam: No acute distress Respiratory rate regular Cardiac rhythm regular Abdomen soft nontender Results & Data Results & Data Vital Signs (Past 12 Hours) Vital Signs Temp Pulse Pulse Resp BP Pulse Ox O2 Del Method 07/30/25 02:39 36.6 C 66 18 102/65 98 Room Air 07/29/25 22:21 36.6 C 75 18 116/74 98 Room Air 07/29/25 21:54 75 PG Care Time/CCT Total # of Minutes Spent Total Time Spent with Patient: Total time spent is greater than 50% in coordination of care (as documented) at patient's floor/unit and/or counseling patient: Coding Level of Care Code 48077 SUB INP/OBS CARE 2/35MIN Diagnoses Recurrent epistaxis R04.0
[2025-07-30 09:16] LABS: Hematocrit (blood only) 26.6 % (37.0-47.0); Hemoglobin 8.6 g/dl (12.0-16.0); Mean Corpuscular Hemoglobin 26.6 pg (25.0-34.0); Mean Corpuscular Volume 82.4 fL (80.0-100.0); Platelet Count 154 K/uL (130-400); RDW Standard Deviation 45.2 fL (36.4-46.3); Red Blood Count 3.23 M/uL (4.20-5.40); White Blood Count 4.16 K/ul (4.8-10.8)
[2025-07-30 09:30] LABS: Anion Gap 4.0 (3-11); Blood Urea Nitrogen 10.0 mg/dl (6-23); Calcium 8.5 mg/dl (8.6-10.3); Carbon Dioxide 30.0 mmol/L (21-32); Chloride 108.0 mmol/L (98-107); Creatinine Clr Calc Pharmacy 96.5 ml/min; Glucose 97.0 mg/dl (70-99(Fasting)); Potassium 3.7 mmol/L (3.5-5.1); Sodium 142.0 mmol/L (136-145)
[2025-07-30 13:01] VITALS: BP 129/86; PULSE 53; RESP 20; O2SAT 95
[2025-07-30] MEDS: BUTALBITAL/ACETAMIN/CAFFEINE TAB PO STA (13:02)
[2025-07-30] MEDS: BACLOFEN 10 MG TAB PO ONE (13:02)
[2025-07-30] MEDS: MAGNESIUM SULFATE / D5W 1 GM/100 ML BAG IV ONE (13:03)
[2025-07-30] MEDS: OPTIRAY 320 125ml IV ONE (13:27)
--- NOTE | 2025-07-30 13:48 | CT Scan Report ---
CT ANGIOGRAPHY OF THE NECK WITH CONTRAST CLINICAL HISTORY: daily, refractory headaches/neck pain COMPARISON STUDY: MRA of the neck August 09, 2015. Technique: CT angiography of the carotid and vertebral arteries was obtained using Optiray and 3D rec onstruction on an independent workstation. NASCET criteria was utilized. Automated exposure control was utilized for the study. A dose lowering technique was utilized adhering to the principles of ALA RA. CT DOSE: 719.73 mGy.cm Findings: Visualized portions of the lung apices are unremarkable. There are no cervical spine fractu re. There is no cervical lymphadenopathy. The bilateral common carotid, cervical internal carotid and vertebral arteries are patent. The left vertebral artery is dominant. 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 This was shown on MRA of August 09, 2015. There is no aneurysm, d issection or stenosis within the major vasculature of the neck. IMPRESSION: Unremarkable CTA of the neck. ACT 112: Negative or not required by law. Electronically signed by: Ervin Prado M.D. 07/30/2025 1:47 PM
--- NOTE | 2025-07-30 13:52 | CT Scan Report ---
CT cervical spine wo con CLINICAL HISTORY: 49 years-old Female with persistent posterior neck pain s/p fall. Acute neck pain status post fall COMPARISON: CTA neck of same day TECHNIQUE: Multiple axial CT images of the cervical spine were obtained without contrast. A dose low ering technique was utilized adhering to the principles of ALARA. FINDINGS: No acute fracture or subluxation identified. There is slight kyphotic curvature centered at C6. [id number] C5-C6 and C6-C7 intervertebral disc space narrowing with small disc osteophyte complex formations. Minimal multilevel facet arthrosis. Moderate degeneration at C1-C2. There is sugg estion of mild multilevel neural foraminal narrowing. The cervical soft tissues appear unremarkable. The visualized lung apices appear clear. IMPRESSION: No acute cervical spine fracture or subluxation. ACT 112: Negative or not required by law. The above report was generated using voice recognition software. It may contain grammatical, syntax o r spelling errors. Electronically signed by: Dutch Luna M.D. 07/30/2025 1:51 PM
--- NOTE | 2025-07-30 13:57 | CT Scan Report ---
CT ANGIOGRAM OF THE BRAIN CLINICAL HISTORY: Daily headaches. COMPARISON STUDY: Unenhanced CT of the brain dated 07/27/2025. MRI of the brain dated 07/27/2025 TECHNIQUE: Following the IV administration of 120 cc of Optiray 320, CT angiogram of the brain was pe rformed from the skull base to the vertex. Images are reviewed in the axial, sagittal, and coronal pl anes. 3-D MIPS images are created and assessed. IV contrast was administered without complication. A dose lowering technique was utilized adhering to the principles of ALARA. FINDINGS: Brain parenchyma: There is no evidence of hemorrhage or mass effect noting angiographic phase techniq ue. There is no evidence of enhancing mass lesion on the angiogram phase images. No extra-axial fluid collection is seen. Jj-white matter differentiation is preserved. Ventricles, sulci, and cisterns: Normal in configuration. CT angiogram of the brain: There is mild atherosclerotic calcification of the cavernous carotid arter ies. The [place] is developmentally complete with large bilateral posterior to indicating ar teries. The internal carotid arteries at the skull base are patent, as are the anterior and middle ce rebral arteries. The vertebrobasilar system and posterior cerebral arteries are patent. The left vert ebral artery is dominant. The intracranial right vertebral artery is diminutive and terminates as the PICA. The P1 segment is diminutive bilaterally. There is no aneurysm, high-grade stenosis, or focal vessel cutoff identified throughout the intracranial circulation. Dural sinuses: Clear as visualized. Orbits: The bony orbits are intact. The orbital contents are normal as visualized. Sinuses and mastoids: There is [id number] mucosal thickening within the maxillary antra, right side greater than left. The mastoid air cells are well pneumatized. Cerumen is noted in the right ext ernal auditory canal. Calvarium: Unremarkable. IMPRESSION: 1. There is no evidence of hemorrhage or mass effect noting angiographic phase technique. 2. Unremarkable CT angiogram of the brain. ACT 112: Negative or not required by law. Electronically signed by: Joey Floyd M.D. 07/30/2025 1:56 PM
[2025-07-30] MEDS ORDERED: SODIUM CHLORIDE 0.65% NA SOLN 45 ML (OCEAN) ONE (14:48)
--- NOTE | 2025-07-30 15:43 | Discharge Summary ---
Discharge Summary Date of Service date of admission - July 27, 2025 date of discharge - July 30, 2025 Principal Dx & Hospital Course #1 = Principal Diagnosis (1) Syncope: (2) Orthostatic hypotension: (3) Symptomatic anemia: (4) Recurrent epistaxis: (5) Vitamin B12 deficiency: (6) Iron deficiency: (7) Vitamin A deficiency: (8) Zinc deficiency: (9) Kidney stone on left side: (10) Hx of gastric bypass: Plan 49yo female with history of C. difficile, Janki's/hypothyroidism, gastric bypass 05/2021, DVT, and orthostatic hypotension who presented to the ER with recurrent syncope and symptomatic anemia. #syncope | dehydration | orthostatic hypotension - -MRI brain negative for acute findings -was started on fludrocortisone by cardiology earlier this fall for her orthostasis -suspect orthostasis mainly due to worsening anemia from her recurrent epistaxis as well as poor PO intake -no further syncope or near-syncope or orthostasis while hospitalized #acute blood loss anemia 2nd to recurrent epistaxis - -has been dealing with recurrent epistaxis since late May -had some minor epistaxis while hospitalized -has seen [facility] in the recent past for cautery -f/u with [facility] shortly after discharge to recheck the nose - this has been scheduled with Dr Kirk Humphrey -cont nasal saline -s/p 2 units PRBCs of blood this admission with stable H/H since then -s/p EGD this admission without any source of chronic GI blood loss #NUMEROUS nutritional deficiencies - -2nd to gastric bypass status -severe Fe deficiency (valeria = 3) - s/p 3 doses of IV Venofer during the stay -severe B12 deficiency (B12 = 143) - resumed B12 injections while hospitalized; recommended she see her PCP shortly after discharge for another injection, and consider weekly injections for a few weeks -zinc deficiency (zinc = 43, normal >60) - replace with PO zinc daily x 14 days -vitamin A deficiency (vit A = 29, normal >38) - replace with PO vitamin A 10,000 units daily -B1 level returned wnl -consider vitamin C supplementation given epistaxis #Mental Health - -continue lexapro, lyrica #hypothyroidism - -TSH 2 -cont synthroid #daily headaches / history of migraines - -patient has had nearly daily headaches since suffering a head injury in May 2025 -recommended prophylaxis with Nurtec ODT 75mg every other day -gave small number of fioricet to use on prn basis -MRI brain negative -CTA head & neck negative for aneurysm, occlusion, etc. -CT cervical spine - mild-moderate DJD/DDD - could be contributing to headaches -no fractures #gastric bypass status #left-sided kidney stone with prior kidney stones - -has f/u with [facility] shortly after discharge to discuss ongoing management Notes For Next Care Provider Due to NUMEROUS nutritional deficiencies needs to be followed by nutrition f/u ENT for recurrent epistaxis Medication Changes From Visit 1. vitamin A x 2 weeks 2. vitamin C 500mg-1gm daily (OTC) 3. zinc x 2 weeks 4. B12 injections - lifelong 5. will need additional doses of IV venofer (or similar IV prep) in the future 6. fioricet prn 7. Nurtec ODT 75mg every other day for headache prophylaxis Admission HPI Per Admitting Provider Di is a 49F with a past medical history of history of C. difficile, Janki, hypercalcemia, HLD, hx of gastric bypass 05/2021, hx of DVT, and orthostatic hypotension who presents to the ER with recurrent syncope. She had an episode of syncope approximately 6 weeks ago after receiving the flu shot. Unfortunately when she fell she suffered broken teeth and damage to her nose that has caused recurrent nose bleeds. She has seen ENT for this and has had her nose cauterized 5 times. Still having nose bleeds everyday, reports worse with activity. She was recently seen by cardiology and diagnosed with orthostatic hypotension and started on fludrocortisone. Reports that her dizziness has improved since. On admission she is laying in the stretcher in the ER and overall reports feeling unwell. States over the last 6 weeks she has been unable to get well. She reports she has been sick since 2022, reporting vitamin deficiencies that were supposed to be replaced IV but could not get an IV at the infusion center to have it done. She reports that her stools have been all colors, but starting to take form. She does not think she has passed out besides today and the day of her flu shot. Besides the flecainide denies recent medication changes, is no longer on flomax. The lyrica is a chronic medication. She reports poor appetite at home - eating only every few days. ER course: IV tylenol 1L NSS zofan 4mg IV Discharge Exam gen - NAD, pleasant neck - no JVD mouth - MMM nose - no epistaxis or active bleeding heart - RRR, s1 s2, no murmur lungs - CTA b/l abd - soft NT ND BS+ ext - no edema, pulses 2+ b/l feet Discharge Plan Discharge Items Patient Disposition: Home - Self-Care Reason For Visit: SYNCOPE Discharge Diagnosis: 1. passing out spell - due to anemia, recent poor oral intake, etc. 2. severe iron deficiency 3. severe vitamin B12 deficiency 4. vitamin A deficiency 5. zinc deficiency 6. head injury - suspected concussion 7. headaches - due to concussion vs migraines vs both 8. recurrent nosebleeds 9. gastric bypass Activity: As commented below Activity Comment: gradually increase activities over the next 5-7 days as tolerated Sexual Activity: Wait until after follow-up appointment Exercise/Sports: Wait until after follow-up appointment Non-emergency contact: Primary Care Provider and Specialist Call non-emergency contact if: you have any medication questions, your symptoms worsen, your pain is not controlled and your pain is worsening Follow-up/Referrals: Mary East MD [Primary Care Provider] - (within 5 days; be sure to get a B12 shot next week at her office) Boris Ahmadi MD [Physician] - 08/04/25 (kidney stones follow-up ) Yen Hoffmann PA-C [Outside Practitioners] - 08/03/25 12:20 pm (this appointment is at [facility]; nutrition.) James Hui MD [Physician] - (1-2 weeks for follow-up of nosebleeds) Diet: Gluten Free and Bariatric Addtl Attending Provider Instructions: Ms Peres, Zohaib were hospitalized due to having an episode of passing out (also known as syncope). This was likely due to a combination of worsening anemia from nosebleeds, anemia from various vitamin deficiencies, and recent poor oral intake (food/beverage). You required 2 units of blood while here. Your discharge hemoglobin is 8.6. You continue to have severe iron deficiency, vitamin B12 deficiency, and other vitamin/mineral deficiencies. Your ferritin level is 3 (marker of iron in your body). Your B12 level is 143. You received 3 runs of IV iron and 2 shots of vitamin B12. In addition, you underwent upper endoscopy. This returned normal; we did not see any bleeding from any location. CT scans of your neck and neck vessels were normal except for mild arthritis of the cervical spine. No aneurysm or narrowed artery was found. MRI brain was normal. Recommendations - 1. for headaches - restart Nurtec ODT 75mg EVERY OTHER DAY for headache prevention. start this TODAY. New script sent to pharmacy for you. 2. ask Dr East to give you a B12 injection starting next week and do that weekly for about 1 month. Then perhaps do the shots every other week for several months, then ultimately monthly thereafter. 3. take vitamin A supplement x 2 weeks; new script with different dose sent to pharmacy. 4. take a daily zinc supplement x 2 weeks; new script sent to pharmacy. 5. for severe headache you can take 1 tablet of "fioricet" every 6 hours as needed; new script sent to pharmacy. 6. take an qzuv-mnt-singzbq vitamin C tablet - 500mg once daily. 7. continue your fludrocortisone every day for the dizziness (cardiology prescribed this for you). 8. use an yyya-bdk-hgjfbqu saline nasal spray frequently in both nostrils to keep it moist and prevent nosebleeding. Use the gel that the ENT doctor gave you as directed as well. If you indeed had a concussion from the head injury try to "rest" the brain by avoiding excessive TV or device use, excessive reading, etc. See handout. Follow-up - see separate section Return to [facility] if - -you have a severe nosebleed -you have severe dizziness/lightheadedness -you have another episode of passing out -you have a severe headache that won't go away with medicine -any other concern Pending Studies at Discharge: Yes (repeat zinc level ) Stand-Alone Forms: My [facility] Proacta, Smoking Cessation Medications and DC Order Prescriptions: New zinc sulfate 50 mg zinc (220 mg) tablet 50 mg PO DAILY 14 Days Qty: 14 0RF Patient Comments: have to take zinc and vitamin a together ascorbic acid (vitamin C) [Vitamin C] 500 mg tablet 500 mg PO DAILY Qty: 30 1RF Rx Instructions: purchase nvoo-lvw-famukxz cgyrachadf-ttarofqdzelpq-owre 50-325-40 mg tablet 1 tab PO Q6H PRN (Reason: severe headache) Qty: 10 0RF Continued multivitamin Tablet 1 tab PO BID Hold Instructions: Resume on 08/19/25. pregabalin [Lyrica] 200 mg capsule 400 mg PO HS escitalopram oxalate [Lexapro] 10 mg tablet 10 mg PO HS albuterol sulfate 90 mcg/actuation HFA aerosol inhaler 2 puff inhalation Q6H PRN (Reason: shortness of breath or wheezing) Qty: 8.5 0RF phenazopyridine [Pyridium] 100 mg tablet 0 mg PO UD PRN (Reason: bladder pain) acetaminophen [Tylenol Extra Strength] 500 mg tablet 500 mg PO UD PRN (Reason: Pain) rizatriptan [Maxalt] 10 mg tablet 10 mg PO UD PRN (Reason: Migraine Headache) levothyroxine 50 mcg tablet 50 mcg PO QAM cyclobenzaprine 10 mg tablet 10 mg PO BID PRN (Reason: muscle spasm) Changed vitamin A 3,000 mcg (10,000 unit) capsule 10,000 unit PO DAILY 14 Days Qty: 14 0RF Patient Comments: have to take zinc and vitamin a together omeprazole 20 mg capsule,delayed release(DR/EC) 20 mg PO QAM Qty: 30 5RF Discontinued clonidine HCl 0.1 mg tablet 0.1 mg PO BID PRN (Reason: blood pressure) Qty: 30 2RF Hold Instructions: Orthostasis Rx Instructions: Take 1 tablet by mouth every 12 hours as needed for SBP > 140 mmHg. Vitron-C 65 mg iron- 125 mg tablet,delayed release (DR/EC) 1 tab PO QAM No Action lorazepam [Ativan] 1 mg tablet 2 mg PO HS Qty: 60 3RF cyanocobalamin (vitamin B-12) 1,000 mcg/mL solution 1,000 mcg IM UD Patient Comments: once a week for 4 weeks then monthly Rx Instructions: 1ST OF MONTH estradiol 0.5 mg tablet 0.5 mg PO HS estradiol [Estrace] 0.01 % (0.1 mg/gram) cream 0.5 g vaginal UD Patient Comments: just ordered, not yet picked up yet. Rx Instructions: use small dab of cream nightly before bed for three weeks then can reduce frequency to nightly Sunday ondansetron 4 mg tablet,disintegrating 4 mg PO UD PRN (Reason: nausea and vomiting) fludrocortisone 0.1 mg tablet 0.1 mg PO HS meclizine [Antivert] 25 mg tablet,chewable 25 mg PO UD PRN (Reason: dizziness) cholecalciferol (vitamin D3) 1,250 mcg (50,000 unit) capsule 50,000 unit PO WK Patient Comments: sundays Rx Instructions: 50,000 units orally Take One Capsule Once a week for 10 weeks; on sunday Nurtec ODT 75 mg tablet,disintegrating 75 mg PO Q2D Rx Instructions: for headache prevention diphenhydramine-acetaminophen [Tylenol PM Extra Strength] 25-500 mg Tablet 1 tab PO HS Discharge Orders: Discharge Order (Routine); Ordered 07/30/25 Ordered By: Lacho Araya/Other Patient Handouts: Coping with Concussion, TBI Post Traumatic Headaches Admission Data Admit Date/Time: 07/27/25 16:47 Attending Provider: Lacho Osorio Admit Provider: Brandon Barragan Primary Care Provider: Mary East Other Providers: Grady Watson; Emilia Carter; Austin Hope; Patria Royal; Lillian iGl; Pina Livingston; Faina Cortes; Abraham Hurd; Marie Scott; Vishal Morgan; Fabricio Valadez; Noelle Alcantar; Karishma Kang; Darling Mccall; No Hogan; Marcellus Jean; Sudhir Lawson; Iris Millan; Al Sandoval Jr; Mainor Connell; Sebastian Rich; Phill Fields; Charlee Bangura; Jacob Rodriguez I; Madina Thompson; Johann Calderon; Lacho Mane; Esteban Hughes; Gallito Richardson; Shyann Sandhu Other Interventions: Discharge Summary Assessment (RN) Last Done: 07/29/25 12:29 Hospital Stay Data Consultations Gastroenterology Procedures Performed 1. Operation Date: 07/29/25 16:45 Actual Procedures Esophagogastroduodenoscopy - Jacob Rodriguez MD Findings: - The examined esophagus was normal. - Evidence of a gastric bypass was found in the gastric body. This was characterized by healthy appearing mucosa. - The examined jejunum was normal. Impression: - Normal esophagus. - A gastric bypass was found, characterized by healthy appearing mucosa. - Normal examined jejunum. - No specimens collected. 2. TWO units PRBCs 3. IV Venofer x 3 infusions 4. B12 injections Diagnostic Imagining Performed Chest X-Ray 07/27/25 13:02 XR chest 1V portable CLINICAL HISTORY: Chest pain, nonspecific COMPARISON STUDY: 06/22/2025 FINDINGS: Heart size and pulmonary vasculature are normal. No consolidation or pleural effusion. No pneumothorax. IMPRESSION: No acute findings. ACT 112: Negative or not required by law. Electronically signed by: Ab Beatty M.D. 07/27/2025 1:[address] 07/27/25 14:08 CT SCAN OF THE BRAIN WITHOUT IV CONTRAST CLINICAL HISTORY: Syncope COMPARISON STUDY: CT of the brain dated 06/25/2025. TECHNIQUE: Unenhanced CT scan of the brain is performed from the vertex to the skull base. Images are reviewed in the axial, sagittal, and coronal planes. A dose lowering technique was utilized adhering to the principles of ALARA. CT DOSE: 547.75 mGy.cm FINDINGS: Brain parenchyma: A small focus of right frontal encephalomalacia is consistent with a remote insult. There is no hemorrhage, mass effect, or evidence of acute territorial ischemia by CT criteria. Jj-white matter differentiation is preserved. No extra-axial fluid collection is seen. Ventricles, sulci, cisterns: Normal in configuration. Intracranial vasculature: There is atherosclerotic calcification of the cavernous carotid arteries. Calvarium: Unremarkable. Sinuses and mastoids: There is mild mucosal thickening right maxillary antrum. Trace mucosal thickening is noted in the ethmoid sinuses. The mastoid air cells are well pneumatized. Orbits: The bony orbits are grossly intact. IMPRESSION: No acute intracranial abnormality. ACT 112: Negative or not required by law. Electronically signed by: Joey Floyd M.D. 07/27/2025 2:49 PM Brain MRI 07/27/25 16:17 Exam(s): MRI HEAD W/WO Contrast IV Amt: Gadavist 8mL given existing IV EXAM: MR Head Without and With Intravenous Contrast CLINICAL HISTORY: Reason for exam: recurrent syncope, hx of stroke. OTHER: Other Notes: 8mL Gadavist given existing IV by PATRICIA, severe nosebleeds and syncope X 1 month, fainting spells, possible head injury when she fainted, Hx of prior stroke 10yrs ago, propellers ran due to motion TECHNIQUE: Magnetic resonance images of the head/brain without and with intravenous contrast in multiple planes. CONTRAST: Patient received Gadavist 8mL given existing IV of IV contrast COMPARISON: Prior head CT from July 27, 2025. FINDINGS: Brain: Minimal nonspecific white matter changes. No mass. No hemorrhage. No acute infarct. The flow voids at the base of the brain are intact. No evidence of abnormal enhancement. There is a tiny pineal cyst without mass-effect on the adjacent tectal plate. Ventricles: Unremarkable. No ventriculomegaly. Bones/joints: Unremarkable. No acute fracture. Sinuses: Chronic maxillary and ethmoid sinusitis. No acute sinusitis. Mastoid air cells: Unremarkable as visualized. No mastoid effusion. Orbits: Unremarkable as visualized. IMPRESSION: No evidence of acute intracranial pathology. Electronically signed by: Jud Wang MD 07/28/25 00:[address] 07/30/25 12:35 CT cervical spine wo con CLINICAL HISTORY: 49 years-old Female with persistent posterior neck pain s/p fall. Acute neck pain status post fall COMPARISON: CTA neck of same day TECHNIQUE: Multiple axial CT images of the cervical spine were obtained without contrast. A dose lowering technique was utilized adhering to the principles of ALARA. FINDINGS: No acute fracture or subluxation identified. There is slight kyphotic curvature centered at C6. Pqhw-cw-vgozcatw C5-C6 and C6-C7 intervertebral disc space narrowing with small disc osteophyte complex formations. Minimal multilevel facet arthrosis. Moderate degeneration at C1-C2. There is suggestion of mild multilevel neural foraminal narrowing. The cervical soft tissues appear unremarkable. The visualized lung apices appear clear. IMPRESSION: No acute cervical spine fracture or subluxation. ACT 112: Negative or not required by law. The above report was generated using voice recognition software. It may contain grammatical, syntax or spelling errors. Electronically signed by: Dutch Luna M.D. 07/30/2025 1:51 PM Head CTA 07/30/25 12:35 CT ANGIOGRAM OF THE BRAIN CLINICAL HISTORY: Daily headaches. COMPARISON STUDY: Unenhanced CT of the brain dated 07/27/2025. MRI of the brain dated 07/27/2025 TECHNIQUE: Following the IV administration of 120 cc of Optiray 320, CT angiogram of the brain was performed from the skull base to the vertex. Images are reviewed in the axial, sagittal, and coronal planes. 3-D MIPS images are created and assessed. IV contrast was administered without complication. A dose lowering technique was utilized adhering to the principles of ALARA. FINDINGS: Brain parenchyma: There is no evidence of hemorrhage or mass effect noting angiographic phase technique. There is no evidence of enhancing mass lesion on the angiogram phase images. No extra-axial fluid collection is seen. Jj-white matter differentiation is preserved. Ventricles, sulci, and cisterns: Normal in configuration. CT angiogram of the brain: There is mild atherosclerotic calcification of the cavernous carotid arteries. The chitina of Lopez is developmentally complete with large bilateral posterior to indicating arteries. The internal carotid arteries at the skull base are patent, as are the anterior and middle cerebral arteries. The vertebrobasilar system and posterior cerebral arteries are patent. The left vertebral artery is dominant. The intracranial right vertebral artery is diminutive and terminates as the PICA. The P1 segment is diminutive bilaterally. There is no aneurysm, high-grade stenosis, or focal vessel cutoff identified throughout the intracranial circulation. Dural sinuses: Clear as visualized. Orbits: The bony orbits are intact. The orbital contents are normal as visualized. Sinuses and mastoids: There is dcgj-pj-ncqqknzz mucosal thickening within the maxillary antra, right side greater than left. The mastoid air cells are well pneumatized. Cerumen is noted in the right external auditory canal. Calvarium: Unremarkable. IMPRESSION: 1. There is no evidence of hemorrhage or mass effect noting angiographic phase technique. 2. Unremarkable CT angiogram of the brain. ACT 112: Negative or not required by law. Electronically signed by: Joey Floyd M.D. 07/30/2025 1:56 PM Neck CTA 07/30/25 12:35 CT ANGIOGRAPHY OF THE NECK WITH CONTRAST CLINICAL HISTORY: daily, refractory headaches/neck pain COMPARISON STUDY: MRA of the neck August 09, 2015. Technique: CT angiography of the carotid and vertebral arteries was obtained using Optiray and 3D reconstruction on an independent workstation. NASCET sam kimble was utilized. Automated exposure control was utilized for the study. A dose lowering technique was utilized adhering to the principles of ALARA. CT DOSE: 719.73 mGy.cm Findings: Visualized portions of the lung apices are unremarkable. There are no cervical spine fracture. There is no cervical lymphadenopathy. The bilateral common carotid, cervical internal carotid and vertebral arteries are patent. The left vertebral artery is dominant. 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 This was shown on MRA of August 09, 2015. There is no aneurysm, dissection or stenosis within the major vasculature of the neck. IMPRESSION: Unremarkable CTA of the neck. ACT 112: Negative or not required by law. Electronically signed by: Ervin Prado M.D. 07/30/2025 1:47 PM Pending Results Patient Have Any Pending Studies at Discharge: Yes (repeat zinc level ) Discharge Instructions Given to Patient (Per Discharging Provider) Ms Peres, Zohaib were hospitalized due to having an episode of passing out (also known as syncope). This was likely due to a combination of worsening anemia from nosebleeds, anemia from various vitamin deficiencies, and recent poor oral intake (food/beverage). You required 2 units of blood while here. Your discharge hemoglobin is 8.6. You continue to have severe iron deficiency, vitamin B12 deficiency, and other vitamin/mineral deficiencies. Your ferritin level is 3 (marker of iron in your body). Your B12 level is 143. You received 3 runs of IV iron and 2 shots of vitamin B12. In addition, you underwent upper endoscopy. This returned normal; we did not see any bleeding from any location. CT scans of your neck and neck vessels were normal except for mild arthritis of the cervical spine. No aneurysm or narrowed artery was found. MRI brain was normal. Recommendations - 1. for headaches - restart Nurtec ODT 75mg EVERY OTHER DAY for headache prevention. start this TODAY. New script sent to pharmacy for you. 2. ask Dr East to give you a B12 injection starting next week and do that weekly for about 1 month. Then perhaps do the shots every other week for several months, then ultimately monthly thereafter. 3. take vitamin A supplement x 2 weeks; new script with different dose sent to pharmacy. 4. take a daily zinc supplement x 2 weeks; new script sent to pharmacy. 5. for severe headache you can take 1 tablet of "fioricet" every 6 hours as needed; new script sent to pharmacy. 6. take an fxgc-hxn-rnkhcnr vitamin C tablet - 500mg once daily. 7. continue your fludrocortisone every day for the dizziness (cardiology prescribed this for you). 8. use an zvgr-uqu-elwldhu saline nasal spray frequently in both nostrils to keep it moist and prevent nosebleeding. Use the gel that the ENT doctor gave you as directed as well. If you indeed had a concussion from the head injury try to "rest" the brain by avoiding excessive TV or device use, excessive reading, etc. See handout. Follow-up - see separate section Return to [facility] if - -you have a severe nosebleed -you have severe dizziness/lightheadedness -you have another episode of passing out -you have a severe headache that won't go away with medicine -any other concern Total Time Total Time Spent Total Time Spent (In Minutes): 50 Total Time Includes: Examination of the Patient, Discharge Planning, Medication Reconciliation and Communication With Other Providers Coding Level of Care Code 42691 INP/OBS DISCH >30 MIN Diagnoses Syncope R55 Orthostatic hypotension I95.1 Symptomatic anemia D64.9 Recurrent epistaxis R04.0 Vitamin B12 deficiency E53.8 Iron deficiency E61.1 Vitamin A deficiency E50.9 Zinc deficiency E60 Kidney stone on left side N20.0 Hx of gastric bypass Z98.84
== END 2025-07-30 17:04 | disposition home or self-care (01) | DRG 312 ==
LOC: ED 12:48 → EDINP 16:47 → INTOOBSV 16:47 → SUATTDRO 16:47 → 2S 19:16
DX: S06.0X9A Concussion with loss of consciousness of unspecified duration, initial encounter; E60 Dietary zinc deficiency; Z79.890 Hormone replacement therapy; R04.0 Epistaxis; E03.9 Hypothyroidism, unspecified; Z98.84 Bariatric surgery status; I95.1 Orthostatic hypotension; G43.909 Migraine, unspecified, not intractable, without status migrainosus; E06.3 Autoimmune thyroiditis; E11.9 Type 2 diabetes mellitus without complications; Z79.899 Other long term (current) drug therapy; Z88.8 Allergy status to other drugs, medicaments and biological substances; Z88.5 Allergy status to narcotic agent; E53.8 Deficiency of other specified B group vitamins; Z86.718 Personal history of other venous thrombosis and embolism; Z90.710 Acquired absence of both cervix and uterus; I10 Essential (primary) hypertension; Z11.52 Encounter for screening for COVID-19; E83.52 Hypercalcemia; D50.9 Iron deficiency anemia, unspecified; E50.9 Vitamin A deficiency, unspecified; D62 Acute posthemorrhagic anemia; W18.30XA Fall on same level, unspecified, initial encounter; E86.0 Dehydration; Z90.49 Acquired absence of other specified parts of digestive tract; Z87.820 Personal history of traumatic brain injury; M81.0 Age-related osteoporosis without current pathological fracture; Z88.6 Allergy status to analgesic agent; E78.5 Hyperlipidemia, unspecified